=== PATIENT | male | born 1965 | race Caucasian/White ===

== ENCOUNTER 2022-07-28 12:34 | Emergency (ER) | payer MEDICARE ==
[2022-07-28] MEDS ORDERED: Sodium Chloride 0.9% 1000 ML 1,000 ML IV STA (12:58)
[2022-07-28] MEDS ORDERED: Sodium Chloride 0.9% 1000 ML 1,000 ML ONE (13:07)
[2022-07-28 13:11] LABS: Absolute Neutrophil Ct (ANC) 5.64 x10^3/uL (1.4-6.9); BASOPHIL % 1.1 % (0.0-0.4); Basophil (Absolute #) 0.09 x10^3/uL (0-0.4); Eosinophil % 2.2 % (0.00-5.0); Eosinophil (Absolute #) 0.17 x10^3/uL (0-0.5); Hematocrit 47.4 % (42-50); Hemoglobin 15.9 g/dL (12.5-18.0); IMMATURE GRAN # 0.05 x10^3u/L (0.00-0.03); IMMATURE GRAN % 0.6 % (0.00-0.4); Lymphocyte (Absolute #) 1.49 x10^3/uL (1.0-4.6); Mean Cell Volume 90.3 fL (78-100); Mean Corpuscular Hemoglobin 30.3 pg (26-32); Mean Corpuscular Hgb Concent. 33.5 g/dL (32-36); Mean Platelet Volume 10.4 fL (7.5-11.0); Monocyte (Absolute #) 0.42 x10^3/uL (0.0-1.3); Monocytes % 5.3 % (0.0-12.0); Neutrophil % 71.8 % (36.0-66.0); Platelet Count 187 x10^3/uL (150-450); Red Blood Count 5.25 x10^6/uL (4.1-5.6); Red Cell Distribution Width 12.8 % (11.5-14.0); White Blood Count 7.9 x10^3/uL (4.0-10.5)
[2022-07-28 13:24] LABS: ALBUMIN 4.2 g/dL (3.5-5.0); ALKALINE PHOSPHATASE 55 U/L (38-126); AMYLASE 79 U/L (30-110); ANION GAP 14.6 MEQ/L (5-15); BLOOD UREA NITROGEN 19 mg/dL (9-20); CHLORIDE 103 mmol/L (98-107); Calcium 8.9 mg/dL (8.4-10.2); Carbon Dioxide 27 mmol/L (22-30); Creatinine 1 0.95 mg/dL (0.66-1.25); EST GLOMERULAR FILTRATION RATE > 60.0 ML/MIN; Glucose 98 mg/dL (74-106); LIPASE 108 U/L (23-300); Potassium 4.4 mmol/L (3.5-5.1); SGOT/AST 25 U/L (17-59); SGPT/ALT 23 U/L (0-50); SODIUM 140 mmol/L (137-145); Total Protein 7.6 g/dL (6.3-8.2)
[2022-07-28 13:25] LABS: Appearance Clear (Clear); Bacteria None Seen /HPF (None Seen); Bilirubin Negative (Negative); Blood Negative (Negative); Epithelial Cells None Seen /HPF (None Seen); Glucose, Urine Negative (Negative); Ketones Trace (Negative); Leukocyte Esterase Trace (Negative); Nitrite Negative (Negative); Protein,Urine Dip 100 (Negative); RBC 0-2 /HPF (0-5); Specific Gravity 1.025 (1.005-1.030); WBC 0-2 /HPF (0-5)
[2022-07-28 13:28] LABS: ADD URINE CULTURE? NO (NO)
--- NOTE | 2022-07-28 13:40 | ERPHSYRPT ---
- History of Present Illness Time Seen by Provider: 07/28/22 13:10 Historian: patient Exam Limitations: physical impairment (deaf) Patient Subjective Stated Complaint: Left sided abdominal pain Triage Nursing Assessment: Patient ambulated back to ED and transferred self to bed. Patient is deaf and this nurse is using rubber stamp dies inspector to help interpret sign language. Patient's skin pink, warm and dry. Patient complains of left sided abdominal pain that started yesterday. Patient complains of pain to left side of abdomen 3/10. Abdomen soft and round with BS X 4. Patient denies N/V or diarrhea. Physician History: 56 years old male with history of kidney stones presented in the ER with left flank pain since yesterday, mild to moderate dull aching without associated nausea or vomiting. Denies any urinary complaints. No history of constipation or diarrhea. Currently patient rates 3/10 intensity pain and does not want any pain medications. Timing/Duration: yesterday, intermittent, gradual onset Activities at Onset: rest Quality: dullness Abdominal Pain Onset Location: LLQ, flank Severity of Pain-Max: moderate Severity of Pain-Current: mild Modifying Factors: Improves With: nothing Associated Symptoms: denies symptoms Allergies/Adverse Reactions: No Known Drug Allergies Allergy (Unverified 07/28/22 12:43) Hx Tetanus, Diphtheria Vaccination/Date Given: No Hx Influenza Vaccination/Date Given: No Hx Pneumococcal Vaccination/Date Given: No Immunizations Up to Date: Yes Travel Risk - International Travel Have you traveled outside of the country in past 3 weeks: No - Coronavirus Screening Are you exhibiting any of the following symptoms?: No Close contact with a COVID-19 positive Pt in past 14-21 Days: No - Vaccine Status Have you recieved a Covid-19 vaccination: Yes Wire Dropper: Unknown - Vaccination Dates Dates if Unknown: na - Review of Systems Constitutional: No Symptoms Ears, Nose, & Throat: No Symptoms Respiratory: No Symptoms Cardiac: No Symptoms Abdominal/Gastrointestinal: Abdominal Pain Genitourinary Symptoms: No Symptoms Musculoskeletal: No Symptoms Skin: No Symptoms Neurological: No Symptoms Endocrine: No Symptoms Hematologic/Lymphatic: No Symptoms - Past Medical History Pertinent Past Medical History: Yes Neurological History: No Pertinent History ENT History: No Pertinent History Cardiac History: High Cholesterol, Hypertension Respiratory History: No Pertinent History Endocrine Medical History: No Pertinent History Musculoskeletal History: No Pertinent History GI Medical History: No Pertinent History History: No Pertinent History Psycho-Social History: No Pertinent History Male Reproductive Disorders: No Pertinent History - Past Surgical History Past Surgical History: Yes Neuro Surgical History: No Pertinent History Cardiac: No Pertinent History Respiratory: No Pertinent History Gastrointestinal: No Pertinent History Genitourinary: Other Musculoskeletal: No Pertinent History Male Surgical History: No Pertinent History Other Surgical History: Surgery to remove kidney stones - Social History Smoking Status: Never smoker Exposure to second hand smoke: No Drug Use: none Patient Lives Alone: Yes (with dad) - Nursing Vital Signs Nursing Vital Signs: Initial Vital Signs Temperature 97.6 F 07/28/22 12:45 Pulse Rate 65 07/28/22 12:45 Respiratory Rate 20 07/28/22 12:45 Blood Pressure 146/89 07/28/22 12:45 O2 Sat by Pulse Oximetry 98 07/28/22 12:45 Pain Scale Pain Intensity 3 - Physical Exam General Appearance: no apparent distress, alert Eye Exam: PERRL/EOMI Ears, Nose, Throat Exam: normal ENT inspection Neck Exam: normal inspection, full range of motion Respiratory Exam: normal breath sounds, lungs clear Cardiovascular Exam: regular rate/rhythm, normal heart sounds Gastrointestinal/Abdomen Exam: soft, normal bowel sounds, tenderness (Left flank) Back Exam: CVA tenderness (Left side) Extremity Exam: normal inspection, normal range of motion Neurologic Exam: alert, 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, cooperative Skin Exam: normal color SpO2 Interpretation: normal SpO2: 98 O2 Delivery: Room Air Ordered Tests: Active Orders 24 hr Category Date Time Status ABDOMEN AND PELVIS W/0 CONTRAS [CT] Stat Exams 07/28/22 13:18 Completed AMYLASE Stat Lab 07/28/22 12:40 Completed CBC W DIFF Stat Lab 07/28/22 12:40 Completed CMP Stat Lab 07/28/22 12:40 Completed LIPASE Stat Lab 07/28/22 12:40 Completed Lactic Acid Stat Lab 07/28/22 12:40 Completed UA W/RFX UR CULTURE Stat Lab 07/28/22 13:02 Completed Medication Summary Discontinued Medications Generic Name Dose Route Start Last Admin Trade Name Freq PRN Reason Stop Dose Admin Sodium Chloride 1,000 mls @ 999 mls/hr 07/28/22 12:58 07/28/22 14:08 Sodium Chloride 0.9% 1000 Ml IV 07/28/22 13:58 Infused .Q1H1M STA Infusion Sodium Chloride Confirm 07/28/22 13:07 Sodium Chloride 0.9% 1000 Ml Administered 07/28/22 13:08 Dose 1,000 mls @ .ROUTE .[facility] ONE Lab/Rad Data: Laboratory Result Diagrams 07/28/22 12:40 07/28/22 12:40 Laboratory Results 07/28/22 07/28/22 07/28/22 Range/Units 13:02 12:40 12:40 WBC (4.0-10.5) x10^3/uL RBC (4.1-5.6) x10^6/uL Hgb (12.5-18.0) g/dL Hct (42-50) % MCV (78-100) fL MCH (26-32) pg MCHC (32-36) g/dL RDW (11.5-14.0) % Plt Count (150-450) x10^3/uL MPV (7.5-11.0) fL Gran % (36.0-66.0) % Immature Gran % (Auto) (0.00-0.4) % Nucleat RBC Rel Count (0.00-0.1) % Eos # (Auto) (0-0.5) x10^3/uL Immature Gran # (Auto) (0.00-0.03) x10^3u/L Absolute Lymphs (auto) (1.0-4.6) x10^3/uL Absolute Monos (auto) (0.0-1.3) x10^3/uL Absolute Nucleated RBC (0.00-0.01) x10^3u/L Lymphocytes % (24.0-44.0) % Monocytes % (0.0-12.0) % Eosinophils % (0.00-5.0) % Basophils % (0.0-0.4) % Absolute Granulocytes (1.4-6.9) x10^3/uL Basophils # (0-0.4) x10^3/uL Sodium 140 (137-145) mmol/L Potassium 4.4 (3.5-5.1) mmol/L Chloride 103 (98-107) mmol/L Carbon Dioxide 27 (22-30) mmol/L Anion Gap 14.6 (5-15) MEQ/L BUN 19 (9-20) mg/dL Creatinine 0.95 (0.66-1.25) mg/dL Estimated GFR > 60.0 ML/MIN Glucose 98 (74-106) mg/dL Lactic Acid 1.3 (0.4-2.0) Calcium 8.9 (8.4-10.2) mg/dL Total Bilirubin 1.40 H (0.2-1.3) mg/dL AST 25 (17-59) U/L ALT 23 (0-50) U/L Alkaline Phosphatase 55 (38-126) U/L Serum Total Protein 7.6 (6.3-8.2) g/dL Albumin 4.2 (3.5-5.0) g/dL Amylase 79 (30-110) U/L Lipase 108 (23-300) U/L Urine Color Dark Yellow (Yellow) Urine Appearance Clear (Clear) Urine pH 5.0 (4.6-8.0) Ur Specific [place] 1.025 (1.005-1.030) Urine Protein 100 A (Negative) Urine Glucose (UA) Negative (Negative) mg/dL Urine Ketones Trace A (Negative) Urine Blood Negative (Negative) Urine Nitrite Negative (Negative) Urine Bilirubin Negative (Negative) Urine Urobilinogen 1.0 A (0.2) mg/dL Ur Leukocyte Esterase Trace A (Negative) U Hyaline Cast (Auto) 3-5 A (0-2) /LPF Urine Microscopic RBC 0-2 (0-5) /HPF Urine Microscopic WBC 0-2 (0-5) /HPF Ur Epithelial Cells None Seen (None Seen) /HPF Urine Bacteria None Seen (None Seen) /HPF Urine Culture Reflexed NO (NO) 07/28/22 Range/Units 12:40 WBC 7.9 (4.0-10.5) x10^3/uL RBC 5.25 (4.1-5.6) x10^6/uL Hgb 15.9 (12.5-18.0) g/dL Hct 47.4 (42-50) % MCV 90.3 (78-100) fL MCH 30.3 (26-32) pg MCHC 33.5 (32-36) g/dL RDW 12.8 (11.5-14.0) % Plt Count 187 (150-450) x10^3/uL MPV 10.4 (7.5-11.0) fL Gran % 71.8 H (36.0-66.0) % Immature Gran % (Auto) 0.6 H (0.00-0.4) % Nucleat RBC Rel Count 0.0 (0.00-0.1) % Eos # (Auto) 0.17 (0-0.5) x10^3/uL Immature Gran # (Auto) 0.05 H (0.00-0.03) x10^3u/L Absolute Lymphs (auto) 1.49 (1.0-4.6) x10^3/uL Absolute Monos (auto) 0.42 (0.0-1.3) x10^3/uL Absolute Nucleated RBC 0.00 (0.00-0.01) x10^3u/L Lymphocytes % 19.0 L (24.0-44.0) % Monocytes % 5.3 (0.0-12.0) % Eosinophils % 2.2 (0.00-5.0) % Basophils % 1.1 (0.0-0.4) % Absolute Granulocytes 5.64 (1.4-6.9) x10^3/uL Basophils # 0.09 (0-0.4) x10^3/uL Sodium (137-145) mmol/L Potassium (3.5-5.1) mmol/L Chloride (98-107) mmol/L Carbon Dioxide (22-30) mmol/L Anion Gap (5-15) MEQ/L BUN (9-20) mg/dL Creatinine (0.66-1.25) mg/dL Estimated GFR ML/MIN Glucose (74-106) mg/dL Lactic Acid (0.4-2.0) Calcium (8.4-10.2) mg/dL Total Bilirubin (0.2-1.3) mg/dL AST (17-59) U/L ALT (0-50) U/L Alkaline Phosphatase (38-126) U/L Serum Total Protein (6.3-8.2) g/dL Albumin (3.5-5.0) g/dL Amylase (30-110) U/L Lipase (23-300) U/L Urine Color (Yellow) Urine Appearance (Clear) Urine pH (4.6-8.0) Ur Specific [place] (1.005-1.030) Urine Protein (Negative) Urine Glucose (UA) (Negative) mg/dL Urine Ketones (Negative) Urine Blood (Negative) Urine Nitrite (Negative) Urine Bilirubin (Negative) Urine Urobilinogen (0.2) mg/dL Ur Leukocyte Esterase (Negative) U Hyaline Cast (Auto) (0-2) /LPF Urine Microscopic RBC (0-5) /HPF Urine Microscopic WBC (0-5) /HPF Ur Epithelial Cells (None Seen) /HPF Urine Bacteria (None Seen) /HPF Urine Culture Reflexed (NO) - Progress Progress: improved, re-examined Progress Note: 07/28/22 15:57 56 years old is evaluated for left flank pain without hematuria or urinary symptoms. Pain is mild to moderate and did not want any pain medications. Does have history of kidney stones and have done acute abdomen work-up which showed normal white count, fairly unremarkable chemistries and no UTI. Obtained CT abdomen pelvis without contrast which is negative for obstructive uropathy, does have some left renal cortical bulge which needs further evaluation with ultrasound. No ultrasound services are available today due to weekend and will schedule for tomorrow morning. Patient is reevaluated and does not want any pain medication even now. Discussed with patient about lab work, plan for ultrasound tomorrow, signs symptoms of worsening needing return to ER which he seems understanding. Stable for discharge. Mexican Food Machine Tender is used for history taking and medical decision making. Counseled pt/family regarding: lab results, diagnosis, need for follow-up, rad results Medical Desision Making - Diagnostic Testing Diagnostic test were ordered, analyzed, and reviewed by me: Yes Radiological Interpretation: Reviewed by me - Risk of complications The pt has a mod risk of morbidity or mortality based on: Need for prescription drug management - Departure Departure Disposition: Home Clinical Impression: Acute left flank pain Condition: Stable Critical Care Time: No Referrals: SHANNAN GILES MD [Primary Care Provider] - Follow up with PCP 1 day Instructions: Severe Abdominal Pain, Adult (DC), Flank Pain (DC) Additional Instructions: Take Tylenol as needed for pain. Return tomorrow morning for ultrasound of left kidney for further evaluation of left kidney bulge. Return to ER for intractable pain, blood in urine, nausea vomiting//fever chills etc.
--- NOTE | 2022-07-28 14:29 | XRAY ---
CLINICAL HISTORY:left sided abdominal pain COMPARISON:None; TECHNIQUES:Spiral axial continuous cuts were taken through the abdomen and pelvis with multiplanar reformatting and without contrast administration. FINDINGS: Left renal lower calyceal dense non-obstructing stone measures about 1 cm and reads 1200 HU, with no back pressure changes. No right renal stones or back pressure changes. Both kidneys are of normal size and shape with clear perinephric fat. Right renal cortical hypodense lesion, likely small simple cyst. Left renal upper pole posterior focal cortical bulge is noted. Normal course and caliber of both ureters with no evidence of stones. Normal filling of the urinary bladder with no stones, masses, or diverticula. Normal appearance of the liver, pancreas, spleen, and adrenal glands on a non-contrast basis. Atheromatous calcifications of the aorta and its main branches. Small prostatic calcifications. No significant lymph eran enlargement or ascetic fluid collection. Bone window images show lumbar spondylotic changes with L3/4 posterior disc osteophyte complex. Lower chest cuts show an enlarged heart. Calcified tiny bibasal nodules, likely granulomas. IMPRESSION: 1. Left renal lower calyceal dense non-obstructing stone with no back pressure changes. 2. No right renal or ureteric stones. 3. Right renal cortical hypodense lesion, likely small simple cyst. 4. Left renal upper pole posterior focal cortical bulge, for better U/S assessment. 5. Lumbar spondylotic changes with L3/4 posterior disc osteophyte complex. Electronically Signed by: Donavon Disla MD. ( 07/28/2022 13:26:21 [employer])
[2022-07-28 15:59] VITALS: BP 120/74; PULSE 72
[2022-07-28 16:00] VITALS: O2SAT 98
== END 2022-07-28 16:06 | disposition home or self-care (01) ==
LOC: ED 12:34
DX: R10.9 Unspecified abdominal pain (principal); E78.5 Hyperlipidemia, unspecified; I10 Essential (primary) hypertension
CPT/HCPCS: 36000; 36415; 74176; 80053; 81001; 82150; 83605; 83690; 85025; 99284

== ENCOUNTER 2022-08-27 16:28 | Emergency (ER) | payer MEDICARE ==
[2022-08-27 17:30] VITALS: O2SAT 96
[2022-08-27 18:17] VITALS: BP 110/81
--- NOTE | 2022-08-27 19:44 | ERPHSYRPT ---
- History of Present Illness Time Seen by Provider: 08/27/22 17:50 Source: patient Exam Limitations: no limitations Patient Subjective Stated Complaint: C/O bilateral knee pain. Pain is intermittent and feels like a grinding. He feels a pop at times. Triage Nursing Assessment: Patient ambulated back to ER with a slow, steady gait. No SOB. He is alert and oriented. Patient is deaf. Assessment performed using pen and paper and a welt rander device at bedside with someone who signs. Skin tone to both knees is normal, no skin alterations noted. Physician History: Patient is a 56-year-old male presents to our ED for evaluation of a 1 year history of bilateral knee pain. Knee pain has been occurring intermittently. No active pain at this time. Patient declined pain medication. No trauma. No fever. Patient is deaf. Communication via writing and signing scaleman. Patient expresses no other complaints or concerns. Portions of this note were created with voice recognition technology. There may be grammatical, spelling, punctuation or sound alike errors Method of Injury: other (No trauma. No injury) Occurred: other (1 year) Quality: intermittent Severity of Pain-Max: moderate Severity of Pain-Current: mild Lower Extremities Pain: knee: bilateral (Pain in both knees.) Modifying Factors: Improves With: other (Pain worse with prolonged activity) Associated Symptoms: none (No associated symptomology) Allergies/Adverse Reactions: No Known Drug Allergies Allergy (Verified 08/27/22 17:12) Home Medications: Allopurinol 100 mg [Zyloprim 100 mg] 1 tab PO DAILY 08/27/22 [History] Lisinopril 10 mg [Zestril 10 MG] 1 tab PO DAILY 08/27/22 [History] Simvastatin 20Mg [Zocor 20Mg] 1 tab PO HS 08/27/22 [History] Hx Tetanus, Diphtheria Vaccination/Date Given: Yes Hx Influenza Vaccination/Date Given: No Hx Pneumococcal Vaccination/Date Given: No Immunizations Up to Date: Yes Travel Risk - International Travel Have you traveled outside of the country in past 3 weeks: No - Coronavirus Screening Are you exhibiting any of the following symptoms?: No Close contact with a COVID-19 positive Pt in past 14-21 Days: No - Vaccine Status Have you recieved a Covid-19 vaccination: Yes Heel Room Supervisor: Unknown - Vaccination Dates Dates if Unknown: na - Review of Systems All Other Systems: Unable due to condition - Past Medical History Pertinent Past Medical History: Yes Neurological History: No Pertinent History ENT History: No Pertinent History Cardiac History: High Cholesterol, Hypertension Respiratory History: No Pertinent History Endocrine Medical History: No Pertinent History Musculoskeletal History: No Pertinent History GI Medical History: No Pertinent History History: No Pertinent History Psycho-Social History: No Pertinent History Male Reproductive Disorders: No Pertinent History Other Medical History: gout, kidney stones, deaf - Past Surgical History Past Surgical History: Yes Neuro Surgical History: No Pertinent History Cardiac: No Pertinent History Respiratory: No Pertinent History Gastrointestinal: No Pertinent History Genitourinary: Other Musculoskeletal: No Pertinent History Male Surgical History: No Pertinent History Other Surgical History: Surgery to remove kidney stones - Social History Smoking Status: Never smoker Exposure to second hand smoke: No Drug Use: none Patient Lives Alone: Yes (with dad) - Nursing Vital Signs Nursing Vital Signs: Initial Vital Signs Temperature 97.5 F 08/27/22 17:15 Pulse Rate 68 08/27/22 17:15 Respiratory Rate 17 08/27/22 17:15 Blood Pressure 118/99 08/27/22 17:15 O2 Sat by Pulse Oximetry 96 08/27/22 17:15 Pain Scale Pain Intensity [] 6 Pain Intensity 6 - Physical Exam General Appearance: alert Eyes, Ears, Nose, Throat Exam: moist mucous membranes Neck Exam: non-tender, supple Cardiovascular/Respiratory Exam: chest non-tender, normal breath sounds, regular rate/rhythm, no respiratory distress Gastrointestinal/Abdominal Exam: non-tender, guarding Back Exam: normal inspection, No vertebral tenderness Hips Exam: bilateral: non-tender, normal inspection, normal range of motion, no evidence of injury Legs Exam: bilateral leg: non-tender, normal inspection, normal range of motion, no evidence of injury Knees Exam: right knee: non-tender, normal inspection, normal range of motion, no evidence of injury, left knee: pain, swelling, other (Involved left lower extremity is neurovascular intact distally. Compartments are soft. Cap refill less than 2 seconds.) Ankle Exam: bilateral ankle: non-tender, normal inspection, normal range of motion, no evidence of injury Foot Exam: bilateral foot: non-tender, normal inspection, normal range of motio n, no evidence of injury Neuro/Tendon Exam: normal sensation, normal motor functions Mental Status Exam: alert, 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, cooperative Skin Exam: normal color, warm, dry SpO2 Interpretation: normal SpO2: 96 O2 Delivery: Room Air - Course Nursing assessment & vital signs reviewed: Yes - Radiology Exams Knee X-ray Interpretation: Interpreted by me (Tricompartmental degenerative changes no fractures or dislocations.) Other X-ray Interpretation: Interpreted by me (Right knee tricompartmental degenerative arthritis. No fracture or dislocation) Ordered Tests: Active Orders 24 hr Category Date Time Status KNEE (MIN 4 VIEW) Stat Exams 08/27/22 18:12 Taken KNEE (MIN 4 VIEW) Stat Exams 08/27/22 18:13 Taken Medication Summary Discontinued Medications Generic Name Dose Route Start Last Admin Trade Name Juliette PRN Reason Stop Dose Admin Ketorolac Tromethamine 30 mg 08/27/22 19:50 08/27/22 19:51 Ketorolac Tromethamine 30 Mg/Ml Inj IV 08/27/22 19:51 Not Given STAT ONE Ketorolac Tromethamine 30 mg 08/27/22 19:51 08/27/22 20:01 Ketorolac Tromethamine 30 Mg/Ml Inj IM 08/27/22 19:52 30 mg STAT ONE Administration Ketorolac Tromethamine Confirm 08/27/22 19:52 Ketorolac Tromethamine 30 Mg/Ml Inj Administered 08/27/22 19:53 Dose 30 mg .ROUTE [facility] - Progress Progress: improved Progress Note: 56-year-old male with bilateral chronic intermittent knee pain. X-ray shows bilateral tricompartmental degenerative arthritis. Patient received Toradol IM for pain control. Will refer patient to orthopedic for further evaluation and treatment. Patient voices no other complaints or concerns at this time. Complexity of problem addressed is low acute uncomplicated. Complex of data reviewed and analyzed is moderate. Dr. Lopez independently reviewed and analyzed x-rays of both knees. No fracture dislocations tricompartmental degenerative disease. Risk of complication and or risk morbidity/mortality of patient management is low. Patient received IM Toradol for pain control. Patient referred to orthopedic clinic for follow-up. Patient agrees to follow-up in the orthopedic clinic for further evaluation and treatment Portions of this note were created with voice recognition technology. There may be grammatical, spelling, punctuation or sound alike errors 08/27/22 19:52 Counseled pt/family regarding: diagnosis, need for follow-up, rad results - Departure Departure Disposition: Home Clinical Impression: Bilateral knee pain, Degenerative arthritis of knee, bilateral Condition: Stable Critical Care Time: No Referrals: SHANNAN GILES MD [Primary Care Provider] - Follow up/PCP as directed Instructions: Osteoarthritis (DC) Additional Instructions: Discharge/Care Plan XIAO GARLAND was seen on 08/27/22 in the Emergency Room. The patient was counseled regarding Diagnosis,Lab results, Imaging studies, need for follow up and when to return to the Emergency Room. Prescriptions given: Discharge Note I have spoken with the patient and/or caregivers. I have explained the patient's condition, diagnosis and treatment plan based on the information available to me at this time. I have answered the patient's and/or caregiver's questions and addressed any concerns. The patient and/or caregivers have as good understanding of the patient's diagnosis, condition and treatment plan as can be expected at this point. The vital signs have been stable. The patient's condition is stable and appropriate for discharge from the emergency department. The patient will pursue further outpatient evaluation with the primary care physician or other designated or consulting physician as outlined in the discharge instructions. The patient and/or caregivers are agreeable to this plan of care and follow-up instructions have been explained in detail. The patient and/or caregivers have received these instruction. The patient/and or caregivers are aware that any significant change in condition or worsening of symptoms should prompt an immediate return to this or the closest emergency department or call 911. Outpatient Orders: Ortho Referral Time Frame: 1 Day, Facility: [facility], Location: [facility]
[2022-08-27] MEDS ORDERED: TORAdol 30 mg Injection IV ONE (19:50)
[2022-08-27] MEDS ORDERED: TORAdol 30 mg Injection IM ONE (19:51)
[2022-08-27] MEDS ORDERED: TORAdol 30 mg Injection ONE (19:52)
[2022-08-27 20:09] VITALS: PULSE 64
--- NOTE | 2022-08-28 08:44 | XRAY ---
Indication: Chronic pain 1 year. Comparison: None 4 view left knee demonstrates mild/moderate tricompartmental degenerative changes greatest medial compartment and minimal scattered vascular calcifications. No other bony, articular, or soft tissue abnormalities.
--- NOTE | 2022-08-28 08:44 | XRAY ---
Indication: Chronic pain 1 year. Comparison: None 4 view right knee demonstrates mild/moderate tricompartmental degenerative changes greatest medial compartment and minimal scattered vascular calcifications. No other bony, articular, or soft tissue abnormalities.
== END 2022-08-27 20:09 | disposition home or self-care (01) ==
LOC: ED 16:28
DX: M17.0 Bilateral primary osteoarthritis of knee (principal); M25.561 Pain in right knee; M25.562 Pain in left knee; H91.90 Unspecified hearing loss, unspecified ear; E78.5 Hyperlipidemia, unspecified; I10 Essential (primary) hypertension; Z79.899 Other long term (current) drug therapy
CPT/HCPCS: 73564; 96372; 99283; J1885

== ENCOUNTER 2023-10-06 09:08 | Emergency (ER) | payer MEDICARE, SELFPAY ==
--- NOTE | 2023-10-06 09:10 | ERPHSYRPT ---
- History of Present Illness Time Seen by Provider: 10/06/23 09:10 Source: patient Exam Limitations: no limitations Physician History: This is an overweight 57-year-old white male patient of Dr. Silva who presents by private vehicle secondary to left posterior radicular and headache pain as well as very bright yellow urine that has been present for a week. He did not suffer any acute trauma to the area. He has no associated fevers. No associated chest pain or shortness of breath. He has no cough. He denies abdominal pain. He has had no nausea vomiting or diarrhea symptoms. Patient has a history of gout, hypertension and hyperlipidemia. Timing/Duration: week(s) (1) Quality: sharpness, throbbing Head Pain Location: occipital (And left postauricular) Severity of Pain-Max: mild (To moderate) Severity of Pain-Current: mild (To moderate) Recent Head Trauma: no recent headache/trauma Associated Symptoms: denies symptoms Previous symptoms: no prior history, no recent treatment Allergies/Adverse Reactions: No Known Drug Allergies Allergy (Verified 10/06/23 09:41) Home Medications: Allopurinol 100 mg [Zyloprim 100 mg] 1 tab PO DAILY 08/27/22 [History] Lisinopril 10 mg [Zestril 10 MG] 1 tab PO DAILY 08/27/22 [History] Simvastatin 20Mg [Zocor 20Mg] 1 tab PO HS 08/27/22 [History] Hx Tetanus, Diphtheria Vaccination/Date Given: Yes Hx Influenza Vaccination/Date Given: No Hx Pneumococcal Vaccination/Date Given: No Travel Risk - International Travel Have you traveled outside of the country in past 3 weeks: No - Emerging Infectious Disease Are you exhibiting symptoms associated with any current EIDs: No - Review of Systems Constitutional: No Symptoms Eyes: No Symptoms Ears, Nose, & Throat: No Symptoms Respiratory: No Symptoms Cardiac: No Symptoms Abdominal/Gastrointestinal: No Symptoms Genitourinary Symptoms: No Symptoms Musculoskeletal: No Symptoms Skin: No Symptoms Neurological: Headache (Left side) Psychological: No Symptoms Endocrine: No Symptoms Hematologic/Lymphatic: No Symptoms Immunological/Allergic: No Symptoms All Other Systems: Reviewed and Negative - Past Medical History Pertinent Past Medical History: Yes Neurological History: No Pertinent History ENT History: No Pertinent History Cardiac History: High Cholesterol, Hypertension Respiratory History: No Pertinent History Endocrine Medical History: No Pertinent History Musculoskeletal History: No Pertinent History GI Medical History: No Pertinent History History: No Pertinent History Psycho-Social History: No Pertinent History Male Reproductive Disorders: No Pertinent History Other Medical History: gout, kidney stones, deaf - Past Surgical History Past Surgical History: Yes Neuro Surgical History: No Pertinent History Cardiac: No Pertinent History Respiratory: No Pertinent History Gastrointestinal: No Pertinent History Genitourinary: Other Musculoskeletal: No Pertinent History Male Surgical History: No Pertinent History Other Surgical History: Surgery to remove kidney stones - Social History Smoking Status: Never smoker Exposure to second hand smoke: No Drug Use: none Patient Lives Alone: Yes (with dad) - Nursing Vital Signs Nursing Vital Signs: Initial Vital Signs Temperature 97.9 F 10/06/23 09:42 Pulse Rate 63 10/06/23 09:42 Respiratory Rate 18 10/06/23 09:42 Blood Pressure 137/95 10/06/23 09:42 O2 Sat by Pulse Oximetry 95 10/06/23 09:42 Pain Scale Pain Intensity 7 - Physical Exam General Appearance: no apparent distress, alert, anxiety Eye Exam: PERRL/EOMI, eyes nml inspection Ears, Nose, Throat Exam: normal ENT inspection, moist mucous membranes Neck Exam: normal inspection, non-tender, supple, full range of motion Respiratory Exam: airway intact, No chest tenderness, No respiratory distress Gastrointestinal/Abdominal Exam: No tenderness Extremity Exam: normal inspection, normal range of motion, pelvis stable Mental Status Exam: alert, 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, 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 Exam: normal hearing, normal speech, PERRL Coordination/Gait Exam: normal gait, normal cerebellar function Skin Exam: normal color, warm, dry Lymphatic Exam: No adenopathy SpO2 Interpretation: normal O2 Delivery: Room Air - Course Nursing assessment & vital signs reviewed: Yes Ordered Tests: Active Orders 24 hr Category Date Time Status HEAD WITHOUT CONTRAST [CT] Stat Exams 10/06/23 09:51 Completed CULTURE,URINE Stat Lab 10/06/23 10:01 Received UA W/RFX UR CULTURE Stat Lab 10/06/23 10:01 Completed Medication Summary Generic Name Dose Route Start Last Admin Trade Name Freq PRN Reason Stop Dose Admin Diltiazem HCl 100 mls @ 5 mls/hr 10/06/23 10:52 Cardizem Drip 100 Mg/100 Ml D5w IV 11/05/23 10:51 .Q20H PRN HEART RATE/ A-FIB Protocol 5 MG/HR Lab/Rad Data: Laboratory Results 10/06/23 10/06/23 10/06/23 Range/Units 10:08 10:08 10:01 Urine Color Yellow (Yellow) Urine Appearance Clear (Clear) Urine pH 6.0 (4.6-8.0) Ur Specific Rogers 1.020 (1.005-1.030) Urine Protein 30 (Negative) Urine Glucose (UA) Negative (Negative) mg/dL Urine Ketones Negative (Negative) Urine Blood NHT (Negative) Urine Nitrite Negative (Negative) Urine Bilirubin Negative (Negative) Urine Urobilinogen 0.2 (0.2) mg/dL Ur Leukocyte Esterase Negative (Negative) U Hyaline Cast (Auto) NONE SEEN (0-2) /LPF Urine Microscopic RBC 6-10 A (0-5) /HPF Urine Microscopic WBC 3-5 (0-5) /HPF Ur Epithelial Cells None Seen (None Seen) /HPF Urine Bacteria None Seen (None Seen) /HPF Urine Culture Reflexed YES (NO) Influenza Type A Ag NEGATIVE (NEGATIVE) Influenza Type B Ag NEGATIVE (NEGATIVE) RSV (PCR) NEGATIVE (NEGATIVE) SARS-CoV-2 (PCR) NEGATIVE (NEGATIVE) Group A Strep Antibody NOT DETECTED (NEGATIVE) - Progress Progress: unchanged Air Movement: good Progress Note: 10/06/23 09:54 My medical decision making and the assignment of moderate complexity to this patient's medical issue today is based on review of the patient's past medical history, review the patient's medication list, review of patient drug allergy list, history present illness and physical findings on examination. The workup in this patient includes viral swabs and group A strep swab as well as urinalysis and CT scan of the head. Differential diagnosis includes but is not limited to acute intracranial abnormality, mastoiditis, urinary tract infection, viral illness 10/06/23 11:08 I interpreted the patient's laboratory data results. Based on the laboratory data results, there are no acute, emergent medical issues CT scan of the head without contrast was interpreted by the radiologist and I reviewed the impression. 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 10/06/23 11:09 Blood Culture(s) Obtained: No Counseled pt/family regarding: lab results, diagnosis, need for follow-up, rad results Medical Desision Making - Diagnostic Testing Diagnostic test were ordered, analyzed, and reviewed by me: Yes Radiological Interpretation: Reviewed by me, Teleradiologist Report - Risk of complications Low Risk: Low risk of morbidity from additional dx testing or treatment - Departure Departure Disposition: Home Clinical Impression: Left-sided headache Condition: Stable Critical Care Time: No Referrals: SHANNAN SILVA MD [Primary Care Provider] - Follow up/PCP as directed Additional Instructions: Drink plenty of fluids. Use Tylenol and ibuprofen for pain control. Call your primary care provider today, 10/06/2023, to make arranges for follow-up appointment for further evaluation management.
[2023-10-06 09:53] VITALS: PULSE 63; RESP 18; TEMP 97.9
[2023-10-06 10:16] LABS: Appearance Clear (Clear); Bacteria None Seen /HPF (None Seen); Bilirubin Negative (Negative); Blood NHT (Negative); Epithelial Cells None Seen /HPF (None Seen); Glucose, Urine Negative (Negative); Hyaline Casts NONE SEEN /LPF (0-2); Ketones Negative (Negative); Leukocyte Esterase Negative (Negative); Nitrite Negative (Negative); Protein,Urine Dip 30 (Negative); Urobilinogen 0.2 mg/dL (0.2)
[2023-10-06 10:22] LABS: ADD URINE CULTURE? YES (NO)
[2023-10-06 10:50] LABS: INFLUENZA A NEGATIVE (NEGATIVE); INFLUENZA B NEGATIVE (NEGATIVE); RESPIRATORY SYNCTIAL VIRUS NEGATIVE (NEGATIVE); SARS-CoV-2 Xpert Express NEGATIVE (NEGATIVE)
[2023-10-06] MEDS ORDERED: CARDIZEM DRIP 100 MG/100 ML D5W 100 ML IV PRN (10:52)
--- NOTE | 2023-10-06 10:59 | XRAY ---
Indication: Headache and dizziness 1 week. Multiple contiguous axial images obtained through the head without contrast. Comparison: None Age-appropriate global atrophy, minimal periventricular degenerative micro-ischemia, and remote lacunar infarct right basal ganglia. No acute intracranial hemorrhage, abnormal extra-axial fluid collection, or mass effect. Fourth ventricle is midline without hydrocephalus. Bony calvarium intact. Visualized paranasal sinuses and mastoid air cells are clear. Impression: Nonacute senile brain with remote lacunar infarct right basal ganglia.
[2023-10-06 11:45] VITALS: BP 169/95; O2SAT 97
== END 2023-10-06 12:02 | disposition home or self-care (01) ==
LOC: ED 09:08
DX: R51.9 Headache, unspecified (principal); I10 Essential (primary) hypertension; E78.5 Hyperlipidemia, unspecified; Z79.899 Other long term (current) drug therapy
CPT/HCPCS: 0241U; 70450; 81001; 87086; 87651; 99283

== ENCOUNTER 2023-12-16 05:50 | Observation (INO) | payer MEDICARE, SELFPAY ==
--- NOTE | 2023-12-16 06:29 | ERPHSYRPT ---
<ZHANE CHONG MariyaBraxton - Last Filed: 12/16/23 06:37> - History of Present Illness Time Seen by Provider: 12/16/23 06:20 Historian: patient, other (She is deaf) Exam Limitations: other (Patient is deaf) Patient Subjective Stated Complaint: pt states he was on social media and someone sent him thretening messages and after that he strated having chest pain. rartes 10/17 and describes as squeezing. Triage Nursing Assessment: pt alerta nd oriented, answers questions approp by writing . pt ambualtes into room with steady gait nted. respirations nonalbored. skin warm and dry. heart rate 65, sinus rhythm on monitor. Physician History: This is a 57-year-old overweight white male patient of Dr. Silva who presents by private vehicle, patient drove himself, because of chest pain left anterior chest described as squeezing without radiation occurred at 4 AM this morning while on social media and receiving threatening messages from someone. Patient has never been a smoker of tobacco cigarettes. He has never been diagnosed with coronary disease, he has a history of hypertension, hyperlipidemia and gout. Patient is deaf and communicates by writing on a pad. He is not short of breath. He ordinarily does take aspirin today but has not taken any in the last 24 hours. Activities at Onset: other (Sitting and engaging on social media) Quality: other (Squeezing left anterior chest) Location: other (Left anterior chest) Chest Pain Radiation: no radiation Severity of Pain-Max: moderate Severity of Pain-Current: mild Modifying Factors: Improves With: nothing Associated Symptoms: denies symptoms Prior Chest Pain/Cardiac Workup: no prior chest pain, no prior cardiac workup Nitro Today/Relief: no nitro taken today Aspirin Treatment Today: 81 mg x 4, provided by ED Allergies/Adverse Reactions: No Known Drug Allergies Allergy (Verified 12/16/23 07:10) Home Medications: Allopurinol 100 mg [Zyloprim 100 mg] 1 tab PO DAILY 08/27/22 [History] Lisinopril 10 mg [Zestril 10 MG] 1 tab PO DAILY 08/27/22 [History] Simvastatin 20Mg [Zocor 20Mg] 1 tab PO HS 08/27/22 [History] Metoprolol Tartrate 25 mg [Lopressor 25MG Tab] 0.5 tab PO DAILY 12/16/23 [History] Hx Tetanus, Diphtheria Vaccination/Date Given: No Hx Influenza Vaccination/Date Given: No Hx Pneumococcal Vaccination/Date Given: No Immunizations Up to Date: No Travel Risk - International Travel Have you traveled outside of the country in past 3 weeks: No - Emerging Infectious Disease Are you exhibiting symptoms associated with any current EIDs: No - Review of Systems Constitutional: No Symptoms Eyes: No Symptoms Ears, Nose, & Throat: No Symptoms Respiratory: No Symptoms Cardiac: Chest Pain Abdominal/Gastrointestinal: No Symptoms Genitourinary Symptoms: No Symptoms Musculoskeletal: No Symptoms Skin: No Symptoms Neurological: No Symptoms Psychological: No Symptoms Endocrine: No Symptoms Hematologic/Lymphatic: No Symptoms Immunological/Allergic: No Symptoms All Other Systems: Reviewed and Negative - Past Medical History Pertinent Past Medical History: Yes Neurological History: No Pertinent History ENT History: No Pertinent History Cardiac History: High Cholesterol, Hypertension Respiratory History: No Pertinent History Endocrine Medical History: No Pertinent History Musculoskeletal History: No Pertinent History GI Medical History: No Pertinent History History: No Pertinent History Psycho-Social History: No Pertinent History Male Reproductive Disorders: No Pertinent History Other Medical History: gout, kidney stones, deaf - Past Surgical History Past Surgical History: Yes Neuro Surgical History: No Pertinent History Cardiac: No Pertinent History Respiratory: No Pertinent History Gastrointestinal: No Pertinent History Genitourinary: Other Musculoskeletal: No Pertinent History Male Surgical History: No Pertinent History Other Surgical History: Surgery to remove kidney stones - Social History Smoking Status: Never smoker Exposure to second hand smoke: No Drug Use: none Patient Lives Alone: Yes (with dad) - Social Determinants of Health Will the patient participate in the screening: Yes Do you worry about a steady place to live?: No Do you have any problems with any of the following?: No known problems In the past 12 months,have you had to go without utilities?: No Transportation Issues: Choose not to answer Has anyone in your support network made you feel unsafe?: No Have you or anyone in your house had to go without enough: No - Physical Exam General Appearance: no apparent distress, alert, anxiety, obese Eye Exam: PERRL/EOMI, eyes nml inspection Ears, Nose, Throat Exam: normal ENT inspection, moist mucous membranes Neck Exam: normal inspection, non-tender, supple, full range of motion Respiratory Exam: normal breath sounds, chest tenderness (Left anterior chest squeezing), lungs clear, airway intact, No respiratory distress Cardiovascular Exam: regular rate/rhythm, normal heart sounds, normal peripheral pulses Gastrointestinal/Abdomen Exam: soft, normal bowel sounds, No tenderness Rectal Exam: not done Back Exam: normal inspection, normal range of motion, No CVA tenderness Extremity Exam: normal inspection, normal range of motion, pelvis stable Neurologic Exam: alert, 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, cooperative, 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 nml as tested, nml cerebellar function, nml station & gait, sensation nml Skin Exam: normal color, warm, dry Lymphatic Exam: No adenopathy SpO2 Interpretation: normal SpO2: 97 O2 Delivery: Room Air - Course Nursing assessment & vital signs reviewed: Yes EKG Interpreted by Me: RATE (65), Sinus Rhythm, NORMAL AXIS, NORMAL INTERVALS, NORMAL QRS, Other - Progress Air Movement: good Progress Note: 12/16/23 06:43 My medical decision making and the assignment of moderate complexity to this patient's medical issue today is based on review of the patient's past medical history, review of the patient's medication list, review patient drug allergy list, history of present illness, and physical findings on examination. The workup in this patient includes placement of an intravenous line, twelve-lead EKG, CBC, CMP, troponin level, BNP, D-dimer level, magnesium level, chest x-ray. The differential diagnosis includes but is not limited to muscle skeletal pain, stress, myocardial infarction, pulmonary embolus, electrolyte abnormalities, arrhythmia 12/16/23 06:45 I am transferring care of this patient to Dr. Lopez at shift change. I reviewed the patient history, presenting complaint and outstanding labs and workup res ults that need to be followed up on. He will make final disposition. Blood Culture(s) Obtained: No - Departure Departure Disposition: Home Clinical Impression: Chest pain, ACS (acute coronary syndrome) Condition: Stable Critical Care Time: No Referrals: SHANNAN SILVA MD [Primary Care Provider] - Follow up/PCP as directed <JUANITA LOPEZ - Last Filed: 12/16/23 09:23> - Nursing Vital Signs Nursing Vital Signs: Initial Vital Signs Temperature 97.8 F 12/16/23 05:57 Pulse Rate 68 12/16/23 05:57 Respiratory Rate 16 12/16/23 05:57 Blood Pressure 154/108 12/16/23 05:57 O2 Sat by Pulse Oximetry 97 12/16/23 05:57 Pain Scale Pain Intensity 0 - Radiology Exams Chest X-ray Interpretation: Teleradiologist Report (Nonacute chest) Ordered Tests: Active Orders 24 hr Category Date Time Status Yarn Man STAT Care 12/16/23 06:29 Active EKG-ER Only STAT Care 12/16/23 06:29 Active IV Insertion STAT Care 12/16/23 06:29 Active Pulse Oximetry (ED) STAT Care 12/16/23 06:29 Active CHEST 1 VIEW (PORTABLE) Stat Exams 12/16/23 06:29 Completed CBC W DIFF Stat Lab 12/16/23 06:05 Completed CMP Stat Lab 12/16/23 06:05 Completed D-DIMER QUANTITATIVE Stat Lab 12/16/23 06:05 Completed MAGNESIUM Stat Lab 12/16/23 06:05 Completed NT PRO BNPII Stat Lab 12/16/23 06:05 Completed TROPONIN Q4H Lab 12/16/23 06:05 Completed TROPONIN Q4H Lab 12/16/23 08:41 Completed TROPONIN Q4H Lab 12/16/23 14:30 Ordered Transfer Order Routine Transfer 12/16/23 Ordered Medication Summary Discontinued Medications Generic Name Dose Route Start Last Admin Trade Name Freq PRN Reason Stop Dose Admin Aspirin 324 mg 12/16/23 06:29 12/16/23 06:48 Aspirin 81 Mg Tab.Chew PO 12/16/23 06:30 324 mg STAT ONE Administration Aspirin Confirm 12/16/23 06:47 Aspirin 81 Mg Tab.Chew Administered 12/16/23 06:48 Dose 324 mg .ROUTE .STK-MED ONE Nitroglycerin 1 gm 12/16/23 08:47 Nitroglycerin 1 Gm Packet TOP 12/16/23 08:48 STAT ONE Lab/Rad Data: Laboratory Result Diagrams 12/16/23 06:05 12/16/23 06:05 Laboratory Results 12/16/23 12/16/23 12/16/23 Range/Units 08:41 06:05 06:05 WBC (4.23-9.07) x10^3/uL RBC (4.63-6.08) x10^6/uL Hgb (13.7-17.5) g/dL Hct (40.1-51.0) % MCV (79.0-92.2) fL MCH (25.7-32.2) pg MCHC (32.3-36.5) g/dL RDW (11.6-14.4) % Plt Count (163-337) x10^3/uL MPV (9.4-12.4) fL Gran % (34.0-67.9) % Immature Gran % (Auto) (0.001-0.429) % Nucleat RBC Rel Count (0.00-0.2) % Eos # (Auto) (0.04-0.54) x10^3/uL Immature Gran # (Auto) (0.001-0.031) x10^3u/L Absolute Lymphs (auto) (1.32-3.57) x10^3/uL Absolute Monos (auto) (0.30-0.82) x10^3/uL Absolute Nucleated RBC (0.00-0.012) x10^3u/L Lymphocytes % (21.8-53.1) % Monocytes % (5.3-12.2) % Eosinophils % (0.8-7.0) % Basophils % (0.2-1.2) % Absolute Granulocytes (1.78-5.38) x10^3/uL Basophils # (0.01-0.08) x10^3/uL D-Dimer 0.23 (0.0-0.50) mg/L Sodium (135-145) mmol/L Potassium (3.5-5.1) mmol/L Chloride (98-107) mmol/L Carbon Dioxide (22-30) mmol/L Anion Gap (5-15) MEQ/L BUN (9-20) mg/dL Creatinine (0.66-1.25) mg/dL Estimated GFR ML/MIN Glucose (74-106) mg/dL Calcium (8.4-10.2) mg/dL Magnesium (1.6-2.3) mg/dL Total Bilirubin (0.2-1.3) mg/dL AST (17-59) U/L ALT (0-50) U/L Alkaline Phosphatase (38-126) U/L Troponin I < 0.012 < 0.012 (0.000-0.033) ng/mL NT-Pro-B Natriuret Pep (<300) pg/mL Serum Total Protein (6.3-8.2) g/dL Albumin (3.5-5.0) g/dL 12/16/23 12/16/23 Range/Units 06:05 06:05 WBC 10.4 H (4.23-9.07) x10^3/uL RBC 5.45 (4.63-6.08) x10^6/uL Hgb 16.4 (13.7-17.5) g/dL Hct 49.9 (40.1-51.0) % MCV 91.6 (79.0-92.2) fL MCH 30.1 (25.7-32.2) pg MCHC 32.9 (32.3-36.5) g/dL RDW 14.0 (11.6-14.4) % Plt Count 204 (163-337) x10^3/uL MPV 10.7 (9.4-12.4) fL Gran % 73.0 H (34.0-67.9) % Immature Gran % (Auto) 0.7 H (0.001-0.429) % Nucleat RBC Rel Count 0.0 (0.00-0.2) % Eos # (Auto) 0.18 (0.04-0.54) x10^3/uL Immature Gran # (Auto) 0.07 H (0.001-0.031) x10^3u/L Absolute Lymphs (auto) 1.83 (1.32-3.57) x10^3/uL Absolute Monos (auto) 0.65 (0.30-0.82) x10^3/uL Absolute Nucleated RBC 0.00 (0.00-0.012) x10^3u/L Lymphocytes % 17.6 L (21.8-53.1) % Monocytes % 6.3 (5.3-12.2) % Eosinophils % 1.7 (0.8-7.0) % Basophils % 0.7 (0.2-1.2) % Absolute Granulocytes 7.59 H (1.78-5.38) x10^3/uL Basophils # 0.07 (0.01-0.08) x10^3/uL D-Dimer (0.0-0.50) mg/L Sodium 140 (135-145) mmol/L Potassium 4.5 (3.5-5.1) mmol/L Chloride 103 (98-107) mmol/L Carbon Dioxide 25 (22-30) mmol/L Anion Gap 15.8 H (5-15) MEQ/L BUN 25 H (9-20) mg/dL Creatinine 1.11 (0.66-1.25) mg/dL Estimated GFR 76.5 ML/MIN Glucose 97 (74-106) mg/dL Calcium 9.5 (8.4-10.2) mg/dL Magnesium 2.1 (1.6-2.3) mg/dL Total Bilirubin 1.50 H (0.2-1.3) mg/dL AST 27 (17-59) U/L ALT 21 (0-50) U/L Alkaline Phosphatase 63 (38-126) U/L Troponin I (0.000-0.033) ng/mL NT-Pro-B Natriuret Pep 38.4 (<300) pg/mL Serum Total Protein 8.1 (6.3-8.2) g/dL Albumin 4.7 (3.5-5.0) g/dL - Progress Progress: improved Progress Note: 57-year-old male, hearing impaired history of hypertension hypercholesterolemia elevated BMI presents to our ED for evaluation of chest pain. Preliminary workup negative. Patient received aspirin. Nitroglycerin paste applied. In light of patient's significant cardiovascular risk factors age patient will be admitted for further evaluation and treatment. Plan of care discussed with patient. He agrees to admission to [facility] for further evaluation and treatment. Patient accepted by at 8:42 AM Chest x-ray negative for acute pathology Portions of this note were created with voice recognition technology. There may be grammatical, spelling, punctuation or sound alike errors 12/16/23 08:47 12/16/23 08:49 Antibiotics given: No Counseled pt/family regarding: lab results, diagnosis, rad results
[2023-12-16] MEDS ORDERED: BABY ASPIRIN 81 MG CHEW ONE (06:47)
[2023-12-16] MEDS: BABY ASPIRIN 81 MG CHEW PO ONE (06:48)
[2023-12-16 07:13] LABS: Absolute Neutrophil Ct (ANC) 7.59 x10^3/uL (1.78-5.38); BASOPHIL % 0.7 % (0.2-1.2); Basophil (Absolute #) 0.07 x10^3/uL (0.01-0.08); Eosinophil % 1.7 % (0.8-7.0); Eosinophil (Absolute #) 0.18 x10^3/uL (0.04-0.54); Hematocrit 49.9 % (40.1-51.0); Hemoglobin 16.4 g/dL (13.7-17.5); IMMATURE GRAN # 0.07 x10^3u/L (0.001-0.031); IMMATURE GRAN % 0.7 % (0.001-0.429); Lymphocyte (Absolute #) 1.83 x10^3/uL (1.32-3.57); Lymphocytes % 17.6 % (21.8-53.1); Mean Cell Volume 91.6 fL (79.0-92.2); Mean Corpuscular Hemoglobin 30.1 pg (25.7-32.2); Mean Corpuscular Hgb Concent. 32.9 g/dL (32.3-36.5); Mean Platelet Volume 10.7 fL (9.4-12.4); Monocyte (Absolute #) 0.65 x10^3/uL (0.30-0.82); Monocytes % 6.3 % (5.3-12.2); Platelet Count 204 x10^3/uL (163-337); Red Blood Count 5.45 x10^6/uL (4.63-6.08); White Blood Count 10.4 x10^3/uL (4.23-9.07)
[2023-12-16 07:35] LABS: ALBUMIN 4.7 g/dL (3.5-5.0); ANION GAP 15.8 MEQ/L (5-15); BILIRUBIN,TOTAL 1.5 mg/dL (0.2-1.3); Calcium 9.5 mg/dL (8.4-10.2); Creatinine 1 1.11 mg/dL (0.66-1.25); EST GLOMERULAR FILTRATION RATE 76.5 ML/MIN; MAGNESIUM 2.1 mg/dL (1.6-2.3); NT PRO BNPII 38.4 pg/mL (<300); Potassium 4.5 mmol/L (3.5-5.1); Total Protein 8.1 g/dL (6.3-8.2)
--- NOTE | 2023-12-16 09:14 | XRAY ---
Indication: Chest pain. Comparison: None Portable chest slightly inflated and clear. Heart not enlarged. Bony thorax intact with minimal degenerative changes. Impression: Nonacute chest.
[2023-12-16] MEDS ORDERED: NITRO-BID 2% UD PACKETS ONE (09:23)
[2023-12-16] MEDS: NITRO-BID 2% UD PACKETS TOP ONE (09:24)
--- NOTE | 2023-12-16 10:27 | PCM.HP ---
History of Present Illness - Chief Complaint Chief Complaint: Chest pain, acute coronary syndrome Date: 12/16/23 History of Present Illness: is a 57 year old male with PMHX of hypertension, hyperlipidemia and gout. Patient is deaf and communicates by writing on a pad. He is a patient of Dr. Silva. He presented by private vehicle, patient drove himself, because of chest pain left anterior chest described as squeezing without radiation occurred at 4 AM this morning while on social media and receiving threatening messages from someone. Trop x2 negative will continue to trend. CXR non-concerning. Anion gap elevated and IVF started. Psych consult ordered. CP improved since admission. He denies SOB, abd. pain, N/V/D. - Review of Systems Constitutional: No Fever, No Chills Eyes: No Symptoms Ears, Nose, & Throat: No Symptoms Respiratory: No Cough, No Short Of Breath Cardiac: Chest Pain, No Edema, No Syncope Abdominal/Gastrointestinal: No Abdominal Pain, No Nausea, No Vomiting, No Diarrhea Genitourinary Symptoms: No Dysuria Musculoskeletal: No Back Pain, No Neck Pain Skin: No Rash Neurological: No Dizziness, No Focal Weakness, No Sensory Changes Psychological: No Symptoms, Anxiety Endocrine: No Symptoms Hematologic/Lymphatic: No Symptoms Immunological/Allergic: No Symptoms Medications & Allergies Home Medications: Home Medication List Lisinopril 10 mg [Zestril 10 MG] 1 tab PO DAILY 08/27/22 [History Confirmed 12/16/23] Simvastatin 20Mg [Zocor 20Mg] 20 mg PO HS 08/27/22 [History Confirmed 12/16/23] Cyclobenzaprine HCl 10 mg [Cyclobenzaprine 10 MG] 10 mg PO HSPRN PRN 12/16/23 [History Confirmed 12/16/23] Metoprolol Tartrate 25 mg [Lopressor 25MG Tab] 0.5 tab PO DAILY 12/16/23 [History Confirmed 12/16/23] Tamsulosin HCl 0.4 mg [Flomax 0.4 MG] 0.4 mg PO DAILY 12/16/23 [History Confirmed 12/16/23] Allergies/Adverse Reactions: Allergies Allergy/AdvReac Type Severity Reaction Status Date / Time No Known Drug Allergies Allergy Verified 12/16/23 07:10 - Past Medical History Past Medical History: Yes Neurological History: No Pertinent History ENT History: No Pertinent History Cardiac History: High Cholesterol, Hypertension Respiratory History: No Pertinent History Endocrine Medical History: No Pertinent History Musculoskelatal History: No Pertinent History GI Medical History: No Pertinent History History: No Pertinent History Pyscho-Social History: No Pertinent History Male Reproductive Disorders: No Pertinent History Comment: gout, kidney stones, deaf - Past Surgical History Past Surgical History: Yes Neuro Surgical History: No Pertinent History Cardiac History: No Pertinent History Respiratory Surgery: No Pertinent History GI Surgical History: No Pertinent History Genitourinary Surgical Hx: Other Musculskeletal Surgical Hx: No Pertinent History Male Surgical History: No Pertinent History Other Surgical History: Surgery to remove kidney stones - Social History Smoking Status: Never smoker Exposure to second hand smoke: No Alcohol: None Drug Use: none - Social Determinants of Health Will the patient participate in the screening: Yes Do you worry about a steady place to live?: No Do you have any problems with any of the following?: No known problems In the past 12 months,have you had to go without utilities?: No Have you or anyone in your house had to go without enough: No Transportation Issues: Choose not to answer Has anyone in your support network made you feel unsafe?: No - Physical Exam Vital Signs: Vital Signs - 24 hr Temp Pulse Pulse Resp BP BP Pulse Ox 12/16/23 09:15 18 121/76 97 12/16/23 09:00 18 122/77 97 12/16/23 08:45 18 134/76 96 12/16/23 08:30 18 108/60 97 12/16/23 08:15 61 19 120/90 96 12/16/23 08:09 58 L 13 129/83 97 12/16/23 08:00 60 15 126/90 94 L 12/16/23 07:30 67 17 128/86 94 L 12/16/23 07:00 64 16 136/102 95 12/16/23 06:46 97 12/16/23 06:30 68 15 144/89 97 12/16/23 06:29 95 12/16/23 05:57 97.8 F 68 64 16 154/108 97 General Appearance: no apparent distress, alert, obese Neurologic Exam: alert, 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, cooperative, normal mood/affect, nml cerebellar function, nml station & gait, sensation nml, No motor deficits Eye Exam: PERRL/EOMI, eyes nml inspection Ears, Nose, Throat Exam: normal ENT inspection, TMs normal, pharynx normal, moist mucous membranes Neck Exam: normal inspection, non-tender, supple, full range of motion Respiratory Exam: normal breath sounds, lungs clear, No respiratory distress Cardiovascular Exam: regular rate/rhythm, normal heart sounds, normal peripheral pulses Gastrointestinal/Abdomen Exam: soft, normal bowel sounds, No tenderness, No mass Back Exam: normal inspection, normal range of motion, No CVA tenderness, No vertebral tenderness Extremity Exam: normal inspection, normal range of motion, pelvis stable Skin Exam: normal color, warm, dry, No rash Lymphatic Exam: No adenopathy Results - Labs Lab/Micro Results: Lab Results-Last 24 Hours 12/16/23 12/16/23 12/16/23 Range/Units 06:05 06:05 06:05 WBC 10.4 H (4.23-9.07) x10^3/uL RBC 5.45 (4.63-6.08) x10^6/uL Hgb 16.4 (13.7-17.5) g/dL Hct 49.9 (40.1-51.0) % MCV 91.6 (79.0-92.2) fL MCH 30.1 (25.7-32.2) pg MCHC 32.9 (32.3-36.5) g/dL RDW 14.0 (11.6-14.4) % Plt Count 204 (163-337) x10^3/uL MPV 10.7 (9.4-12.4) fL Gran % 73.0 H (34.0-67.9) % Immature Gran % (Auto) 0.7 H (0.001-0.429) % Nucleat RBC Rel Count 0.0 (0.00-0.2) % Eos # (Auto) 0.18 (0.04-0.54) x10^3/uL Immature Gran # (Auto) 0.07 H (0.001-0.031) x10^3u/L Absolute Lymphs (auto) 1.83 (1.32-3.57) x10^3/uL Absolute Monos (auto) 0.65 (0.30-0.82) x10^3/uL Absolute Nucleated RBC 0.00 (0.00-0.012) x10^3u/L Lymphocytes % 17.6 L (21.8-53.1) % Monocytes % 6.3 (5.3-12.2) % Eosinophils % 1.7 (0.8-7.0) % Basophils % 0.7 (0.2-1.2) % Absolute Granulocytes 7.59 H (1.78-5.38) x10^3/uL Basophils # 0.07 (0.01-0.08) x10^3/uL D-Dimer 0.23 (0.0-0.50) mg/L Sodium 140 (135-145) mmol/L Potassium 4.5 (3.5-5.1) mmol/L Chloride 103 (98-107) mmol/L Carbon Dioxide 25 (22-30) mmol/L Anion Gap 15.8 H (5-15) MEQ/L BUN 25 H (9-20) mg/dL Creatinine 1.11 (0.66-1.25) mg/dL Estimated GFR 76.5 ML/MIN Glucose 97 (74-106) mg/dL Calcium 9.5 (8.4-10.2) mg/dL Magnesium 2.1 (1.6-2.3) mg/dL Total Bilirubin 1.50 H (0.2-1.3) mg/dL AST 27 (17-59) U/L ALT 21 (0-50) U/L Alkaline Phosphatase 63 (38-126) U/L Troponin I (0.000-0.033) ng/mL NT-Pro-B Natriuret Pep 38.4 (<300) pg/mL Serum Total Protein 8.1 (6.3-8.2) g/dL Albumin 4.7 (3.5-5.0) g/dL 12/16/23 12/16/23 Range/Units 06:05 08:41 WBC (4.23-9.07) x10^3/uL RBC (4.63-6.08) x10^6/uL Hgb (13.7-17.5) g/dL Hct (40.1-51.0) % MCV (79.0-92.2) fL MCH (25.7-32.2) pg MCHC (32.3-36.5) g/dL RDW (11.6-14.4) % Plt Count (163-337) x10^3/uL MPV (9.4-12.4) fL Gran % (34.0-67.9) % Immature Gran % (Auto) (0.001-0.429) % Nucleat RBC Rel Count (0.00-0.2) % Eos # (Auto) (0.04-0.54) x10^3/uL Immature Gran # (Auto) (0.001-0.031) x10^3u/L Absolute Lymphs (auto) (1.32-3.57) x10^3/uL Absolute Monos (auto) (0.30-0.82) x10^3/uL Absolute Nucleated RBC (0.00-0.012) x10^3u/L Lymphocytes % (21.8-53.1) % Monocytes % (5.3-12.2) % Eosinophils % (0.8-7.0) % Basophils % (0.2-1.2) % Absolute Granulocytes (1.78-5.38) x10^3/uL Basophils # (0.01-0.08) x10^3/uL D-Dimer (0.0-0.50) mg/L Sodium (135-145) mmol/L Potassium (3.5-5.1) mmol/L Chloride (98-107) mmol/L Carbon Dioxide (22-30) mmol/L Anion Gap (5-15) MEQ/L BUN (9-20) mg/dL Creatinine (0.66-1.25) mg/dL Estimated GFR ML/MIN Glucose (74-106) mg/dL Calcium (8.4-10.2) mg/dL Magnesium (1.6-2.3) mg/dL Total Bilirubin (0.2-1.3) mg/dL AST (17-59) U/L ALT (0-50) U/L Alkaline Phosphatase (38-126) U/L Troponin I < 0.012 < 0.012 (0.000-0.033) ng/mL NT-Pro-B Natriuret Pep (<300) pg/mL Serum Total Protein (6.3-8.2) g/dL Albumin (3.5-5.0) g/dL - Radiology Impressions Radiology Exams & Impressions: Radiology Procedures Category Date Time Status CHEST 1 VIEW (PORTABLE) Stat Exams 12/16/23 06:29 Completed Assessment/Plan (1) Chest pain Current Visit: Yes Status: Acute Assessment & Plan: - trop x2 negative- trend - EKG - Tele - TSH - CXR negative - May be related to anxiety. - ASA/ Nitro paste started in ER Code(s): R07.9 - CHEST PAIN, UNSPECIFIED (2) Anxiety Current Visit: Yes Status: Acute Assessment & Plan: - Started this morning while on social media and receiving threatening messages from someone. - Psych consult Code(s): F41.9 - ANXIETY DISORDER, UNSPECIFIED (3) Dehydration Current Visit: Yes Status: Acute Assessment & Plan: - Anion Gap 15.8 - IVF started Code(s): E86.0 - DEHYDRATION (4) HTN (hypertension) Current Visit: Yes Status: Chronic Assessment & Plan: - BP stable - Continue home meds Code(s): I10 - ESSENTIAL (PRIMARY) HYPERTENSION (5) Hyperlipidemia Current Visit: Yes Status: Chronic Assessment & Plan: - continue statin Code(s): E78.5 - HYPERLIPIDEMIA, UNSPECIFIED (6) BPH (benign prostatic hyperplasia) Current Visit: Yes Status: Acute Assessment & Plan: - Continue flomax VTE: SCD's Next of Kin: Emmett Guthrie [phone] D/C plan: tomorrow Code status: Full Code(s): N40.0 - BENIGN PROSTATIC HYPERPLASIA WITHOUT LOWER URINRY TRACT SYMP
[2023-12-16] MEDS: Sodium Chloride 0.9% 1000 ML 1,000 ML IV SCH (11:22)
[2023-12-16] MEDS ORDERED: Cyclobenzaprine 10 MG PO PRN (11:23)
[2023-12-16] MEDS: Flomax 0.4 MG PO SCH (12:10)
[2023-12-16] MEDS: Lopressor 25MG Tab PO SCH (12:10)
[2023-12-16] MEDS: Zestril 10 MG PO SCH (12:10)
[2023-12-16] MEDS: TYLENOL 325 MG PO PRN (16:33)
[2023-12-16] MEDS: ZOCOR 20MG PO SCH (22:41)
[2023-12-17 05:35] LABS: Hematocrit 43.9 % (40.1-51.0); Hemoglobin 14.3 g/dL (13.7-17.5); Mean Cell Volume 92.6 fL (79.0-92.2); Mean Corpuscular Hemoglobin 30.2 pg (25.7-32.2); Mean Corpuscular Hgb Concent. 32.6 g/dL (32.3-36.5); Mean Platelet Volume 10.7 fL (9.4-12.4); Platelet Count 178 x10^3/uL (163-337); Red Blood Count 4.74 x10^6/uL (4.63-6.08); White Blood Count 9.4 x10^3/uL (4.23-9.07)
[2023-12-17 05:58] LABS: ALBUMIN 3.5 g/dL (3.5-5.0); BILIRUBIN,TOTAL 1.2 mg/dL (0.2-1.3); Calcium 8.5 mg/dL (8.4-10.2); Creatinine 1 1.15 mg/dL (0.66-1.25); EST GLOMERULAR FILTRATION RATE 73.3 ML/MIN; Potassium 4.5 mmol/L (3.5-5.1); Total Protein 6.3 g/dL (6.3-8.2)
[2023-12-17 07:29] VITALS: O2SAT 96
[2023-12-17] MEDS ORDERED: ZYLOPRIM 100 MG PO SCH (10:00)
[2023-12-17 11:33] VITALS: BP 146/64; PULSE 70; RESP 16; TEMP 97.7
--- NOTE | 2023-12-17 12:39 | PCM.DS ---
Discharge Summary Date of Admission: 12/16/23 09:47 Date of Discharge: 12/17/23 Admitting Physician: BERT BYNUM MD Consults: Consults on Case 12/16/23 10:16 Consult,Ankita [Psychiatric Consult] STAT Primary Care Provider: SHANNAN SILVA MD Allergies Allergies No Known Drug Allergies Allergy (Verified 12/16/23 07:10) Hospital Summary - Hospital Course Hospital Course: 12/16/23 is a 57 year old male with PMHX of hypertension, hyperlipidemia and gout. Patient is deaf and communicates by writing on a pad. He is a patient of Dr. Silva. He presented by private vehicle, patient drove himself, because of chest pain left anterior chest described as squeezing without radiation occurred at 4 AM this morning while on social media and receiving threatening messages from someone. Trop x2 negative will continue to trend. CXR non-concerning. Anion gap elevated and IVF started. Psych consult ordered. CP improved since admission. He denies SOB, abd. pain, N/V/D. 12/17/23 Pt resting in bed. 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 He states he has no pain today and is ok with d/c today. He is willing to f/u Op with [facility]. He also wants to file a police report. Safety plan in place. Pt denies suicidal or homicidal ideation. He denies CP, SOB, abd. pain, N/V/D. - Vitals & Intake/Output Vital Signs: Vital Signs Temperature 97.7 F 12/17/23 11:32 Pulse Rate 70 12/17/23 11:32 Respiratory Rate 16 12/17/23 11:32 Blood Pressure 146/64 12/17/23 11:32 O2 Sat by Pulse Oximetry 96 12/17/23 11:32 Intake & Output: Intake & Output 12/15/23 12/16/23 12/17/23 12/18/23 11:59 11:59 11:59 11:59 Intake Total 2513 Output Total 725 Balance 1788 Weight 115.8 kg - Lab Result Diagrams: 12/17/23 04:16 12/17/23 04:16 Lab Results-Last 24 Hrs: Lab Results-Last 24 Hours 12/16/23 12/17/23 12/17/23 Range/Units 14:50 04:16 04:16 WBC 9.4 H (4.23-9.07) x10^3/uL RBC 4.74 (4.63-6.08) x10^6/uL Hgb 14.3 (13.7-17.5) g/dL Hct 43.9 (40.1-51.0) % MCV 92.6 H (79.0-92.2) fL MCH 30.2 (25.7-32.2) pg MCHC 32.6 (32.3-36.5) g/dL RDW 14.0 (11.6-14.4) % Plt Count 178 (163-337) x10^3/uL MPV 10.7 (9.4-12.4) fL Sodium (135-145) mmol/L Potassium (3.5-5.1) mmol/L Chloride (98-107) mmol/L Carbon Dioxide (22-30) mmol/L Anion Gap (5-15) MEQ/L BUN (9-20) mg/dL Creatinine (0.66-1.25) mg/dL Estimated GFR ML/MIN Glucose (74-106) mg/dL Calcium (8.4-10.2) mg/dL Total Bilirubin (0.2-1.3) mg/dL AST (17-59) U/L ALT (0-50) U/L Alkaline Phosphatase (38-126) U/L Troponin I < 0.012 (0.000-0.033) ng/mL Serum Total Protein (6.3-8.2) g/dL Albumin (3.5-5.0) g/dL TSH 3rd Generation 2.231 (0.470-4.680) mIU/L 12/17/23 Range/Units 04:16 WBC (4.23-9.07) x10^3/uL RBC (4.63-6.08) x10^6/uL Hgb (13.7-17.5) g/dL Hct (40.1-51.0) % MCV (79.0-92.2) fL MCH (25.7-32.2) pg MCHC (32.3-36.5) g/dL RDW (11.6-14.4) % Plt Count (163-337) x10^3/uL MPV (9.4-12.4) fL Sodium 138 (135-145) mmol/L Potassium 4.5 (3.5-5.1) mmol/L Chloride 108 H (98-107) mmol/L Carbon Dioxide 21 L (22-30) mmol/L Anion Gap 14.0 (5-15) MEQ/L BUN 25 H (9-20) mg/dL Creatinine 1.15 (0.66-1.25) mg/dL Estimated GFR 73.3 ML/MIN Glucose 87 (74-106) mg/dL Calcium 8.5 (8.4-10.2) mg/dL Total Bilirubin 1.20 (0.2-1.3) mg/dL AST 21 (17-59) U/L ALT 16 (0-50) U/L Alkaline Phosphatase 48 (38-126) U/L Troponin I (0.000-0.033) ng/mL Serum Total Protein 6.3 (6.3-8.2) g/dL Albumin 3.5 (3.5-5.0) g/dL TSH 3rd Generation (0.470-4.680) mIU/L - Radiology Exams Ordered Rad Exams-Entire Visit: Radiology Procedures Category Date Time Status CHEST 1 VIEW (PORTABLE) Stat Exams 12/16/23 06:29 Completed Discharge Exam General Appearance: no apparent distress, alert Neurologic Exam: alert, 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, cooperative, normal mood/affect, nml cerebellar function, sensation nml, No motor deficits Eye Exam: PERRL, EOMI, eyes nml inspection Ears, Nose, Throat Exam: normal ENT inspection, pharynx normal, moist mucous membranes Neck Exam: normal inspection, non-tender, supple, full range of motion Respiratory Exam: normal breath sounds, lungs clear, No respiratory distress Cardiovascular Exam: regular rate/rhythm, normal heart sounds Gastrointestinal/Abdomen Exam: soft, No tenderness, No mass Male Genitalia Exam: deferred Rectal Exam: deferred Back Exam: normal inspection, normal range of motion, No CVA tenderness, No vertebral tenderness Extremity Exam: normal inspection, normal range of motion Skin Exam: normal color, warm, dry Final Diagnosis/Problem List - Final Discharge Diagnosis/Problem (1) Chest pain Current Visit: Yes Status: Resolved Code(s): R07.9 - CHEST PAIN, UNSPECIFIED (2) Anxiety Current Visit: Yes Status: Acute Code(s): F41.9 - ANXIETY DISORDER, UNSPECIFIED (3) Dehydration Current Visit: Yes Status: Resolved Code(s): E86.0 - DEHYDRATION (4) HTN (hypertension) Current Visit: Yes Status: Chronic Code(s): I10 - ESSENTIAL (PRIMARY) HYPERTENSION (5) Hyperlipidemia Current Visit: Yes Status: Chronic Code(s): E78.5 - HYPERLIPIDEMIA, UNSPECIFIED (6) BPH (benign prostatic hyperplasia) Current Visit: Yes Status: Acute Assessment & Plan: (1) Chest pain Current Visit: Yes Status: Acute Assessment & Plan: - trop x3 negative - EKG- reviewed - Tele - TSH- WNL - CXR negative - May be related to anxiety. - ASA/ Nitro paste started in ER Code(s): R07.9 - CHEST PAIN, UNSPECIFIED (2) Anxiety Current Visit: Yes Status: Acute Assessment & Plan: - Started this morning while on social media and receiving threatening messages from someone. - Psych consult - safety plan in place - F/U Op with [facility] Code(s): F41.9 - ANXIETY DISORDER, UNSPECIFIED (3) Dehydration Current Visit: Yes Status: Acute Assessment & Plan: - Anion Gap 15.8 - IVF started 12/16 - resolved Code(s): E86.0 - DEHYDRATION (4) HTN (hypertension) Current Visit: Yes Status: Chronic Assessment & Plan: - BP stable - Continue home meds Code(s): I10 - ESSENTIAL (PRIMARY) HYPERTENSION (5) Hyperlipidemia Current Visit: Yes Status: Chronic Assessment & Plan: - continue statin Code(s): E78.5 - HYPERLIPIDEMIA, UNSPECIFIED (6) BPH (benign prostatic hyperplasia) Current Visit: Yes Status: Acute Assessment & Plan: - Continue flomax Code(s): N40.0 - BENIGN PROSTATIC HYPERPLASIA WITHOUT LOWER URINRY TRACT SYMP (7) BMI 38.0-38.9,adult Current Visit: Yes Status: Acute Assessment & Plan: - advised diet and exercise control Code(s): Z68.38 - BODY MASS INDEX [BMI] 38.0-38.9, ADULT - Discharge Discharge Date: 12/17/23 Disposition: Home, Self-Care Condition: Stable Prescriptions: Continue Simvastatin 20Mg [Zocor 20Mg] 20 mg PO HS Lisinopril 10 mg [Zestril 10 MG] 1 tab PO DAILY Metoprolol Tartrate 25 mg [Lopressor 25MG Tab] 0.5 tab PO DAILY Tamsulosin HCl 0.4 mg [Flomax 0.4 MG] 0.4 mg PO DAILY Cyclobenzaprine HCl 10 mg [Cyclobenzaprine 10 MG] 10 mg PO HSPRN PRN PRN Reason: Muscle Spasms Instructions: Anxiety, Adult ED, Chest pain Additional Instructions: DANIA GUTIÉRREZ CALLED- YOU CAN STOP IN TO THEIR POLICE DEPARTMENT ON YOUR WAY [place] [address] TO MAKE A REPORT. THEIR PHONE NUMBER IS WELL Follow up with: [facility] [LOCATION] - Call for Appointment ([email or web address]. [address] [place] [address] ) DEBBIE RUSSELL NP [NON-STAFF PHY W/O PRIVILEGES] - 12/26/23 9:45 am Forms: Discharge Instructions
== END 2023-12-17 13:10 | disposition home or self-care (01) ==
LOC: ED 05:50 → MED SURG 09:47
PROVIDERS: ADMIT Internal Medicine; ATTEND Internal Medicine
DX: R07.9 Chest pain, unspecified (principal); F41.9 Anxiety disorder, unspecified; E86.0 Dehydration; I10 Essential (primary) hypertension; E78.5 Hyperlipidemia, unspecified; M10.9 Gout, unspecified; H91.3 Deaf nonspeaking, not elsewhere classified; N40.0 Benign prostatic hyperplasia without lower urinary tract symptoms; Z79.899 Other long term (current) drug therapy; Z68.38 Body mass index [BMI] 38.0-38.9, adult
CPT/HCPCS: 36000; 36415; 71045; 80053; 83735; 83880; 84443; 84484; 85025; 85027; 85379; 93005; 93041; 94760; 99285; Q3014; 93268; A9270-GY; G0378

== ENCOUNTER 2024-05-08 03:02 | Emergency (ER) | payer MEDICARE ==
[2024-05-08 03:20] VITALS: TEMP 97.7
[2024-05-08 03:57] LABS: Absolute Neutrophil Ct (ANC) 6.93 x10^3/uL (1.78-5.38); BASOPHIL % 0.9 % (0.2-1.2); Basophil (Absolute #) 0.09 x10^3/uL (0.01-0.08); Hematocrit 45.5 % (40.1-51.0); Hemoglobin 15.5 g/dL (13.7-17.5); IMMATURE GRAN # 0.05 x10^3u/L (0.001-0.031); IMMATURE GRAN % 0.5 % (0.001-0.429); Lymphocytes % 19.2 % (21.8-53.1); Mean Corpuscular Hemoglobin 30.3 pg (25.7-32.2); Mean Corpuscular Hgb Concent. 34.1 g/dL (32.3-36.5); Monocyte (Absolute #) 0.75 x10^3/uL (0.30-0.82); Monocytes % 7.6 % (5.3-12.2); Neutrophil % 69.8 % (34.0-67.9); Platelet Count 162 x10^3/uL (163-337); Red Blood Count 5.11 x10^6/uL (4.63-6.08); Red Cell Distribution Width 12.2 % (11.6-14.4); White Blood Count 9.9 x10^3/uL (4.23-9.07)
[2024-05-08 04:16] LABS: ALBUMIN 3.9 g/dL (3.5-5.0); ALKALINE PHOSPHATASE 57 U/L (38-126); ANION GAP 11.7 MEQ/L (5-15); BLOOD UREA NITROGEN 20 mg/dL (9-20); CHLORIDE 102 mmol/L (98-107); Calcium 9.1 mg/dL (8.4-10.2); Carbon Dioxide 30 mmol/L (22-30); Creatinine 1 0.94 mg/dL (0.66-1.25); EST GLOMERULAR FILTRATION RATE 92.8 ML/MIN; ETHYL ALCOHOL < 10 mg/dL (0-10); Glucose 105 mg/dL (74-106); Potassium 4.2 mmol/L (3.5-5.1); SGOT/AST 22 U/L (17-59); SGPT/ALT 20 U/L (0-50); SODIUM 140 mmol/L (135-145); Total Protein 6.6 g/dL (6.3-8.2)
--- NOTE | 2024-05-08 04:19 | ERPHSYRPT ---
- History of Present Illness Source: patient Exam Limitations: no limitations Patient Subjective Stated Complaint: c/o dizziness, headache, and right sided rib pain Triage Nursing Assessment: Patirnt brought to ED with c/o of dizziness, headache, and right sided rib pain. Patient states that the symptoms have been off and on for a week. denies diarrhea or vomiting but has some nausea. Afebrile, slightly hypertensive, PERRLA present and 4mm, denies falling or trauma to the ribs, gait steady, bowel sounds present in all 4 quads, s1 and s2 heard, pulses normal, patient doesn't appear to be in any distress at this time Timing/Duration: week(s) (1) Quality: aching Head Pain Location: global Severity of Pain-Max: moderate Severity of Pain-Current: moderate Associated Symptoms: dizziness, sensitive to light, other (Mild nausea no vomiting no diarrhea), No fever/chills, No neck pain Previous symptoms: same symptoms as today, no recent treatment Hx Tetanus, Diphtheria Vaccination/Date Given: No Hx Influenza Vaccination/Date Given: No Hx Pneumococcal Vaccination/Date Given: No <ZHANE CHONG - Last Filed: 05/08/24 06:44> <DEEPIKA HESS - Last Filed: 05/08/24 08:16> - History of Present Illness Time Seen by Provider: 05/08/24 03:25 Physician History: This is a 66-year-old white male deaf patient who is obese and arrives by private vehicle with complaints of 1 week history of headache, dizziness, nausea and right sided rib pain for a month. He has not suffered any acute trauma or fall. He denies diarrhea and he denies vomiting. He denies chest pain and he denies shortness of breath. Patient has a history of prostate issues, hyperlipidemia, hypertension, gout and chronic recurring headaches. He is not on any new medications (ZHANE CHONG) Allergies/Adverse Reactions: No Known Drug Allergies Allergy (Verified 05/08/24 03:20) Home Medications: Lisinopril 10 mg [Zestril 10 MG] 1 tab PO DAILY 08/27/22 [History] Simvastatin 20Mg [Zocor 20Mg] 20 mg PO HS 08/27/22 [History] Metoprolol Tartrate 25 mg [Lopressor 25MG Tab] 0.5 tab PO DAILY 12/16/23 [History] Tamsulosin HCl 0.4 mg [Flomax 0.4 MG] 0.4 mg PO DAILY 12/16/23 [History] Aspirin [Vaishnavi Chewable Aspirin] 81 mg PO DAILY 05/08/24 [History] Travel Risk - International Travel Have you traveled outside of the country in past 3 weeks: No - Emerging Infectious Disease Are you exhibiting symptoms associated with any current EIDs: No <ZHANE CHONG - Last Filed: 05/08/24 06:44> - Review of Systems Constitutional: No Symptoms Eyes: No Symptoms Ears, Nose, & Throat: No Symptoms Respiratory: No Symptoms Cardiac: No Symptoms Abdominal/Gastrointestinal: No Symptoms Genitourinary Symptoms: No Symptoms Musculoskeletal: No Symptoms Skin: No Symptoms Neurological: Dizziness, Headache Psychological: No Symptoms Endocrine: No Symptoms Hematologic/Lymphatic: No Symptoms Immunological/Allergic: No Symptoms All Other Systems: Reviewed and Negative <ZHANE CHONG - Last Filed: 05/08/24 06:44> - Past Medical History Pertinent Past Medical History: Yes Neurological History: No Pertinent History ENT History: No Pertinent History Cardiac History: High Cholesterol, Hypertension Respiratory History: No Pertinent History Endocrine Medical History: No Pertinent History Musculoskeletal History: No Pertinent History GI Medical History: No Pertinent History History: No Pertinent History Psycho-Social History: No Pertinent History Male Reproductive Disorders: No Pertinent History Other Medical History: gout, kidney stones, deaf - Past Surgical History Past Surgical History: Yes Neuro Surgical History: No Pertinent History Cardiac: No Pertinent History Respiratory: No Pertinent History Gastrointestinal: No Pertinent History Genitourinary: Other Musculoskeletal: No Pertinent History Male Surgical History: No Pertinent History Other Surgical History: Surgery to remove kidney stones - Social History Smoking Status: Never smoker Exposure to second hand smoke: No Drug Use: none - Social Determinants of Health Will the patient participate in the screening: Declined to provide Do you worry about a steady place to live?: No Do you have any problems with any of the following?: No known problems In the past 12 months,have you had to go without utilities?: No Transportation Issues: Choose not to answer Has anyone in your support network made you feel unsafe?: No Have you or anyone in your house had to go w/o enough food: No <ZHANE CHONG - Last Filed: 05/08/24 06:44> - Physical Exam General Appearance: no apparent distress, alert, anxiety, obese, other (Patient is deaf) Eye Exam: PERRL/EOMI, eyes nml inspection Ears, Nose, Throat Exam: normal ENT inspection, moist mucous membranes Neck Exam: normal inspection, non-tender, supple, full range of motion Respiratory Exam: normal breath sounds, lungs clear, prolonged expirations, No chest tenderness, No respiratory distress Cardiovascular Exam: regular rate/rhythm, normal heart sounds, normal peripheral pulses Gastrointestinal/Abdominal Exam: soft, normal bowel sounds, No tenderness Back Exam: normal inspection, normal range of motion, No CVA tenderness, No vertebral tenderness Extremity Exam: normal inspection, normal range of motion, pelvis stable Mental Status Exam: alert, 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, cooperative manager functional Exam: PERRL, tongue midline Skin Exam: normal color, warm, dry Lymphatic Exam: No adenopathy SpO2 Interpretation: normal SpO2: 95 O2 Delivery: Room Air <ZHANE CHONG - Last Filed: 05/08/24 06:44> - Nursing Vital Signs Nursing Vital Signs: Initial Vital Signs Temperature 97.7 F 05/08/24 03:07 Pulse Rate 75 05/08/24 03:07 Respiratory Rate 22 05/08/24 03:07 Blood Pressure 158/106 05/08/24 03:07 O2 Sat by Pulse Oximetry 94 L 05/08/24 03:07 Pain Scale Pain Intensity 8 - Course Nursing assessment & vital signs reviewed: Yes EKG Interpreted by Me: RATE (70), Sinus Rhythm, NORMAL AXIS, NORMAL INTERVALS, NORMAL QRS, NORMAL ST-T, Other (No acute ischemia on today's twelve-lead EKG. QTc is 431) <ZHANE CHONG - Last Filed: 05/08/24 06:44> <DEEPIKA HESS - Last Filed: 05/08/24 08:16> Ordered Tests: Active Orders 24 hr Category Date Time Status Cotton Seed Culler STAT Care 05/08/24 03:36 Active EKG-ER Only STAT Care 05/08/24 03:35 Active IV Insertion STAT Care 05/08/24 06:38 Active CHEST 1 VIEW (PORTABLE) Stat Exams 05/08/24 03:[address] ANGIOGRAPHY NECK [CT] Stat Exams 05/08/24 06:40 Completed CTA HEAD W AND/OR WO CONTRAST [CT] Stat Exams 05/08/24 06:41 Completed HEAD WITHOUT CONTRAST [CT] Stat Exams 05/08/24 03:36 Completed CBC W DIFF Stat Lab 05/08/24 03:53 Completed CMP Stat Lab 05/08/24 03:53 Completed CULTURE,URINE Stat Lab 05/08/24 04:38 Received ETHYL ALCOHOL Stat Lab 05/08/24 03:53 Completed Lactic Acid Stat Lab 05/08/24 04:00 Completed MAGNESIUM Stat Lab 05/08/24 03:53 Completed MONO SCREEN Stat Lab 05/08/24 03:53 Completed TROPONIN Q4H Lab 05/08/24 03:53 Completed TROPONIN Q4H Lab 05/08/24 07:52 Received TROPONIN Q4H Lab 05/08/24 11:45 Ordered UA W/RFX UR CULTURE Stat Lab 05/08/24 04:38 Completed Medication Summary Discontinued Medications Generic Name Dose Route Start Last Admin Trade Name Juliette PRN Reason Stop Dose Admin Sodium Chloride 500 mls @ 500 mls/hr 05/08/24 06:38 Sodium Chloride 0.9% 500 Ml IV 05/08/24 07:37 .Q1H ONE Meclizine HCl 25 mg 05/08/24 06:38 05/08/24 06:43 Meclizine Hcl 25 Mg Tablet PO 05/08/24 06:39 25 mg STAT ONE Administration Meclizine HCl Confirm 05/08/24 06:42 Meclizine Hcl 25 Mg Tablet Administered 05/08/24 06:43 Dose 25 mg .ROUTE .STK-MED ONE Lab/Rad Data: Laboratory Result Diagrams 05/08/24 03:53 05/08/24 03:53 Laboratory Results 05/08/24 05/08/24 05/08/24 Range/Units 04:38 04:00 03:53 WBC (4.23-9.07) x10^3/uL RBC (4.63-6.08) x10^6/uL Hgb (13.7-17.5) g/dL Hct (40.1-51.0) % MCV (79.0-92.2) fL MCH (25.7-32.2) pg MCHC (32.3-36.5) g/dL RDW (11.6-14.4) % Plt Count (163-337) x10^3/uL MPV (9.4-12.4) fL Gran % (34.0-67.9) % Immature Gran % (Auto) (0.001-0.429) % Nucleat RBC Rel Count (0.00-0.2) % Eos # (Auto) (0.04-0.54) x10^3/uL Immature Gran # (Auto) (0.001-0.031) x10^3u/L Absolute Lymphs (auto) (1.32-3.57) x10^3/uL Absolute Monos (auto) (0.30-0.82) x10^3/uL Absolute Nucleated RBC (0.00-0.012) x10^3u/L Lymphocytes % (21.8-53.1) % Monocytes % (5.3-12.2) % Eosinophils % (0.8-7.0) % Basophils % (0.2-1.2) % Absolute Granulocytes (1.78-5.38) x10^3/uL Basophils # (0.01-0.08) x10^3/uL Sodium (135-145) mmol/L Potassium (3.5-5.1) mmol/L Chloride (98-107) mmol/L Carbon Dioxide (22-30) mmol/L Anion Gap (5-15) MEQ/L BUN (9-20) mg/dL Creatinine (0.66-1.25) mg/dL Estimated GFR ML/MIN Glucose (74-106) mg/dL Lactic Acid 1.0 (0.4-2.0) Calcium (8.4-10.2) mg/dL Magnesium (1.6-2.3) mg/dL Total Bilirubin (0.2-1.3) mg/dL AST (17-59) U/L ALT (0-50) U/L Alkaline Phosphatase (38-126) U/L Troponin I (0.000-0.033) ng/mL Serum Total Protein (6.3-8.2) g/dL Albumin (3.5-5.0) g/dL Urine Color Yellow (Yellow) Urine Appearance Clear (Clear) Urine pH 5.5 (4.6-8.0) Ur Specific Gable 1.020 (1.005-1.030) Urine Protein 30 (Negative) Urine Glucose (UA) Negative (Negative) mg/dL Urine Ketones Negative (Negative) Urine Blood Negative (Negative) Urine Nitrite Negative (Negative) Urine Bilirubin Negative (Negative) Urine Urobilinogen 1.0 A (0.2) mg/dL Ur Leukocyte Esterase Trace A (Negative) U Hyaline Cast (Auto) NONE SEEN (0-2) /LPF Urine Microscopic RBC 0-2 (0-5) /HPF Urine Microscopic WBC 3-5 (0-5) /HPF Ur Epithelial Cells None Seen (None Seen) /HPF Urine Bacteria None Seen (None Seen) /HPF Urine Culture Reflexed YES (NO) Ethyl Alcohol (0-10) mg/dL Monoscreen (NEGATIVE) Influenza Type A Ag NEGATIVE (NEGATIVE) Influenza Type B Ag NEGATIVE (NEGATIVE) RSV (PCR) NEGATIVE (NEGATIVE) SARS-CoV-2 (PCR) NEGATIVE (NEGATIVE) 05/08/24 05/08/24 05/08/24 Range/Units 03:53 03:53 03:53 WBC (4.23-9.07) x10^3/uL RBC (4.63-6.08) x10^6/uL Hgb (13.7-17.5) g/dL Hct (40.1-51.0) % MCV (79.0-92.2) fL MCH (25.7-32.2) pg MCHC (32.3-36.5) g/dL RDW (11.6-14.4) % Plt Count (163-337) x10^3/uL MPV (9.4-12.4) fL Gran % (34.0-67.9) % Immature Gran % (Auto) (0.001-0.429) % Nucleat RBC Rel Count (0.00-0.2) % Eos # (Auto) (0.04-0.54) x10^3/uL Immature Gran # (Auto) (0.001-0.031) x10^3u/L Absolute Lymphs (auto) (1.32-3.57) x10^3/uL Absolute Monos (auto) (0.30-0.82) x10^3/uL Absolute Nucleated RBC (0.00-0.012) x10^3u/L Lymphocytes % (21.8-53.1) % Monocytes % (5.3-12.2) % Eosinophils % (0.8-7.0) % Basophils % (0.2-1.2) % Absolute Granulocytes (1.78-5.38) x10^3/uL Basophils # (0.01-0.08) x10^3/uL Sodium 140 (135-145) mmol/L Potassium 4.2 (3.5-5.1) mmol/L Chloride 102 (98-107) mmol/L Carbon Dioxide 30 (22-30) mmol/L Anion Gap 11.7 (5-15) MEQ/L BUN 20 (9-20) mg/dL Creatinine 0.94 (0.66-1.25) mg/dL Estimated GFR 92.8 ML/MIN Glucose 105 (74-106) mg/dL Lactic Acid (0.4-2.0) Calcium 9.1 (8.4-10.2) mg/dL Magnesium 2.0 (1.6-2.3) mg/dL Total Bilirubin 1.20 (0.2-1.3) mg/dL AST 22 (17-59) U/L ALT 20 (0-50) U/L Alkaline Phosphatase 57 (38-126) U/L Troponin I < 0.012 (0.000-0.033) ng/mL Serum Total Protein 6.6 (6.3-8.2) g/dL Albumin 3.9 (3.5-5.0) g/dL Urine Color (Yellow) Urine Appearance (Clear) Urine pH (4.6-8.0) Ur Specific Gable (1.005-1.030) Urine Protein (Negative) Urine Glucose (UA) (Negative) mg/dL Urine Ketones (Negative) Urine Blood (Negative) Urine Nitrite (Negative) Urine Bilirubin (Negative) Urine Urobilinogen (0.2) mg/dL Ur Leukocyte Esterase (Negative) U Hyaline Cast (Auto) (0-2) /LPF Urine Microscopic RBC (0-5) /HPF Urine Microscopic WBC (0-5) /HPF Ur Epithelial Cells (None Seen) /HPF Urine Bacteria (None Seen) /HPF Urine Culture Reflexed (NO) Ethyl Alcohol < 10 (0-10) mg/dL Monoscreen NEGATIVE (NEGATIVE) Influenza Type A Ag (NEGATIVE) Influenza Type B Ag (NEGATIVE) RSV (PCR) (NEGATIVE) SARS-CoV-2 (PCR) (NEGATIVE) 05/08/24 Range/Units 03:53 WBC 9.9 H (4.23-9.07) x10^3/uL RBC 5.11 (4.63-6.08) x10^6/uL Hgb 15.5 (13.7-17.5) g/dL Hct 45.5 (40.1-51.0) % MCV 89.0 (79.0-92.2) fL MCH 30.3 (25.7-32.2) pg MCHC 34.1 (32.3-36.5) g/dL RDW 12.2 (11.6-14.4) % Plt Count 162 L (163-337) x10^3/uL MPV 10.0 (9.4-12.4) fL Gran % 69.8 H (34.0-67.9) % Immature Gran % (Auto) 0.5 H (0.001-0.429) % Nucleat RBC Rel Count 0.0 (0.00-0.2) % Eos # (Auto) 0.20 (0.04-0.54) x10^3/uL Immature Gran # (Auto) 0.05 H (0.001-0.031) x10^3u/L Absolute Lymphs (auto) 1.90 (1.32-3.57) x10^3/uL Absolute Monos (auto) 0.75 (0.30-0.82) x10^3/uL Absolute Nucleated RBC 0.00 (0.00-0.012) x10^3u/L Lymphocytes % 19.2 L (21.8-53.1) % Monocytes % 7.6 (5.3-12.2) % Eosinophils % 2.0 (0.8-7.0) % Basophils % 0.9 (0.2-1.2) % Absolute Granulocytes 6.93 H (1.78-5.38) x10^3/uL Basophils # 0.09 H (0.01-0.08) x10^3/uL Sodium (135-145) mmol/L Potassium (3.5-5.1) mmol/L Chloride (98-107) mmol/L Carbon Dioxide (22-30) mmol/L Anion Gap (5-15) MEQ/L BUN (9-20) mg/dL Creatinine (0.66-1.25) mg/dL Estimated GFR ML/MIN Glucose (74-106) mg/dL Lactic Acid (0.4-2.0) Calcium (8.4-10.2) mg/dL Magnesium (1.6-2.3) mg/dL Total Bilirubin (0.2-1.3) mg/dL AST (17-59) U/L ALT (0-50) U/L Alkaline Phosphatase (38-126) U/L Troponin I (0.000-0.033) ng/mL Serum Total Protein (6.3-8.2) g/dL Albumin (3.5-5.0) g/dL Urine Color (Yellow) Urine Appearance (Clear) Urine pH (4.6-8.0) Ur Specific Gable (1.005-1.030) Urine Protein (Negative) Urine Glucose (UA) (Negative) mg/dL Urine Ketones (Negative) Urine Blood (Negative) Urine Nitrite (Negative) Urine Bilirubin (Negative) Urine Urobilinogen (0.2) mg/dL Ur Leukocyte Esterase (Negative) U Hyaline Cast (Auto) (0-2) /LPF Urine Microscopic RBC (0-5) /HPF Urine Microscopic WBC (0-5) /HPF Ur Epithelial Cells (None Seen) /HPF Urine Bacteria (None Seen) /HPF Urine Culture Reflexed (NO) Ethyl Alcohol (0-10) mg/dL Monoscreen (NEGATIVE) Influenza Type A Ag (NEGATIVE) Influenza Type B Ag (NEGATIVE) RSV (PCR) (NEGATIVE) SARS-CoV-2 (PCR) (NEGATIVE) CLINICAL HISTORY: Headache and dizziness for 1 week COMPARISON: No priors for comparison. TECHNIQUE: Axial non-contrast CT scan of the brain was performed from the skull base to the high parietal region. One of the following dose reduction techniques were utilized for this exam: Automated exposure control, adjustment of the mA and/or kV according to patient size, use of iterative reconstruction. FINDINGS: Brain Parenchyma: Right frontal periventricular white matter small hypodense focus adjacent to the frontal horn of the ventricle suspicious for early/mild microangiopathy without evident mass effect for better evaluation by MRI. Otherwise, normal attenuation of the cerebral hemispheres, cerebellum, and brainstem. No evidence of acute infarct, hemorrhage, or mass effect. No abnormal areas of hypo- or hyperattenuation. Ventricular System: Ventricles are normal in size and configuration. No evidence of hydrocephalus or ventricular enlargement. Subarachnoid Spaces: PatientID: [id number] Patient Name: XIAO GARLAND Exam Date: 05/08/2024 Procedure: HEAD WITHOUT CONTRAST page 1 of 2 Normal sulci and cisterns. No evidence of subarachnoid hemorrhage or extra-axial fluid collections. Cerebellum and Brainstem: Normal size and signal. No masses, lesions, or areas of abnormal signal. Orbits: Normal appearance of the globes, optic nerves, and extraocular muscles. No evidence of orbital masses or abnormal signal. Sinuses: Clear paranasal sinuses. No evidence of sinusitis or mucosal thickening. Mastoid Air Cells: Clear mastoid air cells. No evidence of mastoiditis. Skull: Normal skull morphology. Small right high parietal osteoma IMPRESSION: 1. Right frontal periventricular white matter small hypodense focus adjacent to the frontal horn of the ventricle suspicious for early/mild microangiopathy without evident mass effect. Early changes of a stroke may not be detected on a CT scan. If strong clinical suspicion of stroke then suggest MRI with diffusion-weighted imaging. 2. No otherwise acute intracranial abnormality or hemorrhage. Electronically Signed by: Donavon Disla MD. (05/08/2024 04:57:26 EST) CT/CT ANGIOGRAPHY NECK CLINICAL HISTORY: Dizziness; lesion right frontal hor COMPARISON: None. TECHNIQUE: CT angiography study of the neck vessels with IV contrast was performed and multiple axial sections were obtained with coronal and sagittal reconstructions. 100ml Isovue 370 was administered. One of the following dose reduction techniques were utilized for this exam: Automated exposure control, adjustment of the mA and/or kV according to patient size, and use of iterative reconstruction. One of these 3D techniques was utilized: Maximum Intensity Pixel (MIP), 3D Reconstructed Images, Volume Rendered Images, Surface Shaded Rendering. FINDINGS: Carotid Arteries: Common carotid arteries, internal carotid arteries, and external carotid arteries are well-opacified bilaterally. No evidence of significant stenosis, occlusion, or aneurysm. Shallow non-stenotic calcific plaque in the right CCA bifurcation. Vertebral Arteries: Vertebral arteries bilaterally are well-opacified. No evidence of significant stenosis, occlusion, or aneurysm. No significant atherosclerotic changes. Jugular Veins: Normal opacification of the internal and external jugular veins bilaterally. No evidence of thrombosis or compression. Subclavian Arteries: Subclavian arteries bilaterally are well-opacified. No evidence of significant stenosis, occlusion, or aneurysm. Thyroid Gland: Normal size and morphology of the thyroid gland. No masses or nodules. Soft Tissues: Normal appearance of the surrounding soft tissues of the neck. No abnormal masses or lymphadenopathy. Cervical Spine: Normal alignment and signal intensity of the cervical vertebrae. No fractures, lytic or sclerotic lesions. IMPRESSION: Shallow non-stenotic calcific plaque in the right CCA bifurcation; other than that. No evidence of significant vascular abnormalities. Electronically Signed by: Donavon Disla MD. (05/08/2024 08:03:29 EST) CT/CTA HEAD W AND/OR WO CONTRAST CLINICAL HISTORY: Dizzines; lesion right frontal horn COMPARISON: None. TECHNIQUE: Axial CT angiography of the head was done with contrast (100ml Isovue 370) and sagittal and coronal reformats with MIP reconstructions. One of these 3D techniques was utilized: Maximum Intensity Pixel (MIP), 3D Reconstructed Images, Volume Rendered Images, Surface Shaded Rendering. One of the following dose reduction techniques were utilized for this exam: Automated exposure control, adjustment of the mA and/or kV according to patient size, and use of iterative reconstruction. FINDINGS: Intracranial Arteries: The intracranial portions of the internal carotid arteries, anterior cerebral arteries, middle cerebral arteries, posterior cerebral arteries, basilar artery, and vertebral arteries are well-opacified. No evidence of aneurysm, stenosis, or occlusion. No significant atherosclerotic changes. Shallow non-stenotic calcific plaque in the left ICA cavernous segment. Unga of Burt: The Unga of Burt is complete. Normal caliber of the communicating arteries. No vascular malformations or aneurysms. Venous Structures: Normal opacification of the major dural venous sinuses. No evidence of venous sinus thrombosis. Brain Parenchyma: Normal attenuation of the cerebral hemispheres, cerebellum, and brainstem. No evidence of acute infarct, hemorrhage, or mass effect. Ventricular System: Ventricles are normal in size and configuration. No evidence of hydrocephalus or ventricular enlargement. Skull and Meninges: Normal appearance of the skull. No evidence of meningeal enhancement or thickening. Orbits: Normal appearance of the globes, optic nerves, and extraocular muscles. No evidence of orbital masses or abnormal signal. IMPRESSION: Shallow non-stenotic calcific plaque in the left ICA cavernous segment, other than that, no evidence of significant vascular abnormalities. Electronically Signed by: Donavon Disla MD. (05/08/2024 08:02:25 EST) (DEEPIKA HESS) - Progress Progress: improved, re-examined Air Movement: good Blood Culture(s) Obtained: No Antibiotics given: No Counseled pt/family regarding: lab results, diagnosis, need for follow-up, rad results <ZHANE CHONG - Last Filed: 05/08/24 06:44> - Progress Progress Note: 05/08/24 04:17 My medical decision making in the assignment of moderate complexity to this patient's medical issue today is based on review of the patient's past medical history, reviewed patient's medication list, reviewed patient drug allergy list, history present illness and physical findings on examination. The workup in this patient includes CBC, CMP, CT scan of the head, chest x-ray, twelve-lead EKG, troponin level, urinalysis, viral swabs, monotest. Differential diagnosis includes but is not limited to urinary tract infection, dehydration, migraine headache, acute intracranial abnormality, arrhythmia, electrolyte abnormalities 05/08/24 04:21 I interpreted the patient's preliminary chest x-ray report. There are no acute cardiopulmonary processes 05/08/24 05:11 I interpreted the patient's laboratory data results. Based on the laboratory data results, there are no acute, emergent medical issues. 05/08/24 06:[address] scan of the head without contrast was interpreted by the radiologist and I reviewed the impression. Impression states right frontal periventricular white matter small hypodense focus adjacent to the frontal horn suspicious for early/mild microangiopathy without evidence of mass effect. No evidence of acute infarction hemorrhage or mass effect. I will order a CT angiogram of the neck as well as a CTA of the head with contrast to better define this suspicious area described in the CT scan. I reviewed results with the patient on a sheet of paper and explained to him the need for these additional test. He is agreeable to this. I am transferring care of this patient to Dr. Hess at shift change. He is aware of the pending 2 studies. He will follow-up on those [address] Hess make sure that he obtains a teleneurologist consultation after the results of those studies have been resulted. (ZHANE CHONG) Medical Desision Making - Diagnostic Testing Radiological Interpretation: Reviewed by me <ZHANE CHONG - Last Filed: 05/08/24 06:44> - Independent Historian Additional History obtained from: Relative/friend - Social Determinants of Health Pt's dx & treatment plan are significantly limited by SDOH: limited education (severe deafness) - Diagnostic Testing Diagnostic test were ordered, analyzed, and reviewed by me: Yes - Risk of complications Low Risk: Low risk of morbidity from additional dx testing or treatment <DEEPIKA HESS - Last Filed: 05/08/24 08:16> - Departure Critical Care Time: No <ZHANE CHONG - Last Filed: 05/08/24 06:44> - Departure Departure Disposition: Home <DEEPIKA HESS - Last Filed: 05/08/24 08:16> - Departure Clinical Impression: Dizziness Headache Qualifiers: Headache type: unspecified Headache chronicity pattern: chronic headache Intrac tability: not intractable Qualified Code(s): R51.9 - Headache, unspecified Condition: Stable Referrals: SHANNAN GILES MD [Primary Care Provider] - Follow up/PCP as directed Instructions: Headache, Adult (DC) Additional Instructions: Drink plenty of fluids. Call your primary care provider on 05/10/2024, to make arrangements for follow-up appointment to be seen in the next 3 to 5 days. Take all your medications as prescribed. Prescriptions: Meclizine HCl 25 mg [Antivert 25 mg] 25 mg PO Q8H PRN #10 tablet PRN Reason: Dizziness
[2024-05-08 04:36] LABS: INFLUENZA A NEGATIVE (NEGATIVE); INFLUENZA B NEGATIVE (NEGATIVE); RESPIRATORY SYNCTIAL VIRUS NEGATIVE (NEGATIVE); SARS-CoV-2 Xpert Express NEGATIVE (NEGATIVE)
[2024-05-08 04:53] LABS: Appearance Clear (Clear); Bacteria None Seen /HPF (None Seen); Bilirubin Negative (Negative); Blood Negative (Negative); Epithelial Cells None Seen /HPF (None Seen); Glucose, Urine Negative (Negative); Hyaline Casts NONE SEEN /LPF (0-2); Ketones Negative (Negative); Leukocyte Esterase Trace (Negative); Nitrite Negative (Negative); Ph 5.5 (4.6-8.0); Protein,Urine Dip 30 (Negative); RBC 0-2 /HPF (0-5)
--- NOTE | 2024-05-08 05:01 | XRAY ---
CLINICAL HISTORY: Headache and dizziness for 1 week COMPARISON: No priors for comparison. TECHNIQUE: Axial non-contrast CT scan of the brain was performed from the skull base to the high parietal region. One of the following dose reduction techniques were utilized for this exam: Automated exposure control, adjustment of the mA and/or kV according to patient size, use of iterative reconstruction. FINDINGS: Brain Parenchyma: Right frontal periventricular white matter small hypodense focus adjacent to the frontal horn of the ventricle suspicious for early/mild microangiopathy without evident mass effect for better evaluation by MRI. Otherwise, normal attenuation of the cerebral hemispheres, cerebellum, and brainstem. No evidence of acute infarct, hemorrhage, or mass effect. No abnormal areas of hypo- or hyperattenuation. Ventricular System: Ventricles are normal in size and configuration. No evidence of hydrocephalus or ventricular enlargement. Subarachnoid Spaces: Normal sulci and cisterns. No evidence of subarachnoid hemorrhage or extra-axial fluid collections. Cerebellum and Brainstem: Normal size and signal. No masses, lesions, or areas of abnormal signal. Orbits: Normal appearance of the globes, optic nerves, and extraocular muscles. No evidence of orbital masses or abnormal signal. Sinuses: Clear paranasal sinuses. No evidence of sinusitis or mucosal thickening. Mastoid Air Cells: Clear mastoid air cells. No evidence of mastoiditis. Skull: Normal skull morphology. Small right high parietal osteoma IMPRESSION: 1. Right frontal periventricular white matter small hypodense focus adjacent to the frontal horn of the ventricle suspicious for early/mild microangiopathy without evident mass effect. Early changes of a stroke may not be detected on a CT scan. If strong clinical suspicion of stroke then suggest MRI with diffusion-weighted imaging. 2. No otherwise acute intracranial abnormality or hemorrhage. Electronically Signed by: Donavon Disla MD. (05/08/2024 04:57:26 EST)
[2024-05-08] MEDS ORDERED: ANTIVERT 25 MG ONE (06:42)
[2024-05-08] MEDS: ANTIVERT 25 MG PO ONE (06:43)
[2024-05-08 07:05] VITALS: BP 112/65
--- NOTE | 2024-05-08 07:59 | XRAY ---
Indication: Rib pain. Comparison: December 16, 2023 Portable chest remains inflated and clear. Heart borderline enlarged. Bony thorax intact again with minimal degenerative changes. No new/acute findings.
--- NOTE | 2024-05-08 08:07 | XRAY ---
CLINICAL HISTORY: Dizzines; lesion right frontal horn COMPARISON: None. TECHNIQUE: Axial CT angiography of the head was done with contrast (100ml Isovue 370) and sagittal and coronal reformats with MIP reconstructions. One of these 3D techniques was utilized: Maximum Intensity Pixel (MIP), 3D Reconstructed Images, Volume Rendered Images, Surface Shaded Rendering. One of the following dose reduction techniques were utilized for this exam: Automated exposure control, adjustment of the mA and/or kV according to patient size, and use of iterative reconstruction. FINDINGS: Intracranial Arteries: The intracranial portions of the internal carotid arteries, anterior cerebral arteries, middle cerebral arteries, posterior cerebral arteries, basilar artery, and vertebral arteries are well-opacified. No evidence of aneurysm, stenosis, or occlusion. No significant atherosclerotic changes. Shallow non-stenotic calcific plaque in the left ICA cavernous segment. [place]: The [place] is complete. Normal caliber of the communicating arteries. No vascular malformations or aneurysms. Venous Structures: Normal opacification of the major dural venous sinuses. No evidence of venous sinus thrombosis. Brain Parenchyma: Normal attenuation of the cerebral hemispheres, cerebellum, and brainstem. No evidence of acute infarct, hemorrhage, or mass effect. Ventricular System: Ventricles are normal in size and configuration. No evidence of hydrocephalus or ventricular enlargement. Skull and Meninges: Normal appearance of the skull. No evidence of meningeal enhancement or thickening. Orbits: Normal appearance of the globes, optic nerves, and extraocular muscles. No evidence of orbital masses or abnormal signal. IMPRESSION: Shallow non-stenotic calcific plaque in the left ICA cavernous segment, other than that, no evidence of significant vascular abnormalities. Electronically Signed by: Donavon Disla MD. (05/08/2024 08:02:25 EST)
--- NOTE | 2024-05-08 08:07 | XRAY ---
CLINICAL HISTORY: Dizziness; lesion right frontal hor COMPARISON: None. TECHNIQUE: CT angiography study of the neck vessels with IV contrast was performed and multiple axial sections were obtained with coronal and sagittal reconstructions. 100ml Isovue 370 was administered. One of the following dose reduction techniques were utilized for this exam: Automated exposure control, adjustment of the mA and/or kV according to patient size, and use of iterative reconstruction. One of these 3D techniques was utilized: Maximum Intensity Pixel (MIP), 3D Reconstructed Images, Volume Rendered Images, Surface Shaded Rendering. FINDINGS: Carotid Arteries: Common carotid arteries, internal carotid arteries, and external carotid arteries are well-opacified bilaterally. No evidence of significant stenosis, occlusion, or aneurysm. Shallow non-stenotic calcific plaque in the right CCA bifurcation. Vertebral Arteries: Vertebral arteries bilaterally are well-opacified. No evidence of significant stenosis, occlusion, or aneurysm. No significant atherosclerotic changes. Jugular Veins: Normal opacification of the internal and external jugular veins bilaterally. No evidence of thrombosis or compression. Subclavian Arteries: Subclavian arteries bilaterally are well-opacified. No evidence of significant stenosis, occlusion, or aneurysm. Thyroid Gland: Normal size and morphology of the thyroid gland. No masses or nodules. Soft Tissues: Normal appearance of the surrounding soft tissues of the neck. No abnormal masses or lymphadenopathy. Cervical Spine: Normal alignment and signal intensity of the cervical vertebrae. No fractures, lytic or sclerotic lesions. IMPRESSION: Shallow non-stenotic calcific plaque in the right CCA bifurcation; other than that. No evidence of significant vascular abnormalities. Electronically Signed by: Donavon Disla MD. (05/08/2024 08:03:29 EST)
[2024-05-08 08:22] VITALS: PULSE 58; RESP 12; O2SAT 95
[2024-05-08] MEDS: Sodium Chloride 0.9% 500 ML 500 ML IV ONE (08:23)
== END 2024-05-08 08:27 | disposition home or self-care (01) ==
LOC: ED 03:02
DX: R42 Dizziness and giddiness (principal); R51.9 Headache, unspecified; R11.0 Nausea; R07.81 Pleurodynia; E78.5 Hyperlipidemia, unspecified; I10 Essential (primary) hypertension; Z79.899 Other long term (current) drug therapy
CPT/HCPCS: 0241U; 36415; 70450; 70496; 70498; 71045; 80053; 81001; 82077; 83605; 83735; 84484; 85025; 86308; 87086; 93005; 93041; 99285; 99284; A9270-GY